=== PATIENT | male | born 1955 | race Caucasian/White ===

== ENCOUNTER 2019-03-08 17:48 | Inpatient (IN) | payer MEDICARE, OTHER ==
[~2019-03-08] VITALS: Ht 160 cm; Wt 59.8 kg
--- NOTE | 2019-03-08 18:18 | NUR ---
ED Nurse Note: PT BROUGHT IN BY AMBULANCE FROM [facility]. PER EMS, PT BROUGHT IN DUE TO INCREASED CONFUSION. AT BEDSIDE, PT IS AOX4 AND ANSWERING ALL QUESTIONS APPROPRIATELY. PT CALM AND COOPERATIVE. ON ASSESSMENT, PURSED-LIP BREATHING AND INTERCOSTAL RETRACTIONS NOTED. PT STATES HE HAS HX OF COPD AND ASTHMA. RR24, 02 SAT 99% ON 3L. PT ABLE TO SPEAK IN FULL SENTENCES BUT STATES HE DOES FEEL SOB. DR COLE NOTIFIED.
[2019-03-08] MEDS ORDERED: ARTIFICIAL TEAR15 ML BOTH EYES (18:20)
[2019-03-08] MEDS ORDERED: ASCORBIC ACID500 MG ORAL (18:20)
[2019-03-08] MEDS ORDERED: ASPIRIN81 MG ORAL (18:20)
[2019-03-08] MEDS ORDERED: ACETAMINOPHEN325 M1 ORAL (18:20)
[2019-03-08] MEDS ORDERED: VITAMIN D1000 UNI1 ORAL (18:20)
[2019-03-08] MEDS ORDERED: FOSAMAX70 MG ORAL (18:20)
[2019-03-08] MEDS ORDERED: MEPRON750 MG/51 ORAL (18:20)
[2019-03-08] MEDS ORDERED: ATIVAN1 MG ORAL (18:20)
[2019-03-08] MEDS ORDERED: ALBUTEROL2.5 MG/3 M INH (18:20)
[2019-03-08 18:21] VITALS: BP 148/110
[2019-03-08] MEDS ORDERED: DIAZEPAM2 MG ORAL (18:24)
[2019-03-08] MEDS ORDERED: COLACE100 MG ORAL (18:24)
[2019-03-08] MEDS ORDERED: DIOVAN80 MG ORAL (18:24)
[2019-03-08] MEDS ORDERED: DILTIAZEM HCL90 MG PO (18:24)
[2019-03-08] MEDS ORDERED: DALIRESP500 MCG PO (18:24)
[2019-03-08] MEDS ORDERED: COMBIVENT RESPIM4 GM IH (18:24)
[2019-03-08] MEDS ORDERED: DULCOLAX10 MG RC (18:24)
[2019-03-08] MEDS ORDERED: Albuterol/Ipratropium 3ml neb HHN ONE (18:30)
--- NOTE | 2019-03-08 18:34 | Emergency Room Report ---
History of Present Illness General Chief Complaint: Altered Mental Status Source: Patient Present Illness HPI Patient is a 63-year-old male presented after increased confusion. He was noted to have prior history of COPD and is currently steroid-dependent. He reports having increased difficulty with respirations. He was noted to be increased confusion. He apparently had been off of his oxygen and is normally oxygen dependent. He reports having increased generalized pain. He has multiple medication allergies. Allergies: Coded Allergies: BUPROPION (Verified Allergy, Unknown, 03/08/19) ETHAMBUTOL (Verified Allergy, Unknown, 03/08/19) GABAPENTIN (Verified Allergy, Unknown, 03/08/19) ISONIAZID (Verified Allergy, Unknown, 03/08/19) METHYLPREDNISOLONE (Verified Allergy, Unknown, 03/08/19) PHENYTOIN (Verified Allergy, Unknown, 03/08/19) PYRAZINAMIDE (Verified Allergy, Unknown, 03/08/19) RIFAMPIN (Verified Allergy, Unknown, 03/08/19) SULFA (SULFONAMIDE ANTIBIOTICS) (Verified Allergy, Unknown, 03/08/19) Patient History Past Medical History: see triage record Reviewed Nursing Documentation: PMH: Agreed; PSxH: Agreed Nursing Documentation-PMH Past Medical History: No History, Except For Hx Asthma: Yes Hx COPD: Yes Review of Systems All Other Systems: negative except mentioned in HPI Physical Exam Vital Signs Date Time Temp Pulse Resp B/P (MAP) Pulse Ox O2 Delivery O2 Flow Rate FiO2 03/08/19 17:52 98.1 130 36 131/89 (103) 98 Nasal Cannula 5.0 Sp02 EP Interpretation: reviewed, normal General Appearance: normal inspection, alert, Chronically Ill Head: atraumatic ENT: normal ENT inspection, hearing grossly normal, normal voice Neck: normal inspection, full range of motion, supple, no bony tend Respiratory: normal inspection, lungs clear, normal breath sounds, no respiratory distress, no retraction, no wheezing Cardiovascular #1: regular rate, rhythm, no edema Gastrointestinal: normal inspection, normal bowel sounds, non tender, soft, no guarding, no hernia Genitourinary: no CVA tenderness Musculoskeletal: normal inspection, back normal, normal range of motion Neurologic: normal inspection, alert, oriented x3, responsive, pipe turner III-XII nml as tested, speech normal Psychiatric: normal inspection, judgement/insight normal, mood/affect normal Skin: no rash Medical Decision Making Diagnostic Impression: Primary Impression: COPD exacerbation Additional Impressions: Chronic pain Respiratory acidosis ER Course Patient presented for shortness of breath. Differential diagnosis included but was not limited to asthma exacerbation, pneumonia, pneumothorax, congestive heart failure, viral respiratory infection, pulmonary embolism, anaphylaxis among others. Patient was placed in the examination room and evaluated by me immediately. Patient was checked periodically to assure stability and response to treatment. He was given breathing treatment as well as steroids. He was initially noted to be tachycardic and was started on IV fluids with some improvement. Patient was reexamined after breathing treatment and had improvement in air movement. His blood gas showed some marked CO2 elevation. Patient reported having significant low back pain. He was given pain medications. Dr. Danish Ospina was contacted for inpatient management due to primary care physician. Laboratory Tests Test 03/08/19 18:25 03/08/19 18:45 03/09/19 01:11 White Blood Count 14.9 K/UL (4.8-10.8) H Red Blood Count 4.40 M/UL (4.70-6.10) L Hemoglobin 12.7 G/DL (14.2-18.0) L Hematocrit 39.4 % (42.0-52.0) L Mean Corpuscular Volume 90 FL (80-99) Mean Corpuscular Hemoglobin 28.9 PG (27.0-31.0) Mean Corpuscular Hemoglobin Concent 32.3 G/DL (32.0-36.0) Red Cell Distribution Width 12.6 % (11.6-14.8) Platelet Count 214 K/UL (150-450) ) Mean Platelet Volume 6.2 FL (6.5-10.1) L Lymphocytes (%) (Auto) 2.3 % (20.0-45.0) L Monocytes (%) (Auto) 3.5 % (1.0-10.0) Eosinophils (%) (Auto) 0.0 % (0.0-3.0) Basophils (%) (Auto) 0.6 % (0.0-2.0) Prothrombin Time 9.1 SEC (9.30-11.50) L Prothrombin Time INR 0.8 (0.9-1.1) L PTT 22 SEC (23-33) L Urine Color Pale yellow Urine Appearance Clear Urine pH 7 (4.5-8.0) Urine Specific [place] 1.010 (1.005-1.035) Urine Protein Negative (NEGATIVE) Urine Glucose (UA) Negative (NEGATIVE) Urine Ketones Negative (NEGATIVE) Urine Blood Negative (NEGATIVE) Urine Nitrite Negative (NEGATIVE) Urine Bilirubin Negative (NEGATIVE) Urine Urobilinogen Normal MG/DL (0.0-1.0) Urine Leukocyte Esterase 1+ (NEGATIVE) H Urine RBC 0-2 /HPF (0 - 0) H Urine WBC 0-2 /HPF (0 - 0) Urine Squamous Epithelial Cells None /LPF (NONE/OCC) Urine Bacteria None /HPF (NONE) Sodium Level 138 MMOL/L (136-145) Potassium Level 3.8 MMOL/L (3.5-5.1) Chloride Level 94 MMOL/L (98-107) L Carbon Dioxide Level 40 MMOL/L (21-32) H Anion Gap 2 mmol/L (5-15) L Blood Urea Nitrogen 12 mg/dL (7-18) Creatinine 0.7 MG/DL (0.55-1.30) Estimate Glomerular Filtration Rate > 60 mL/min (>60) Glucose Level 144 MG/DL (74-106) H Lactic Acid Level 1.10 mmol/L (0.4-2.0) Calcium Level 9.1 MG/DL (8.5-10.1) Phosphorus Level 3.4 MG/DL (2.5-4.9) Magnesium Level 2.3 MG/DL (1.8-2.4) Total Bilirubin 0.3 MG/DL (0.2-1.0) Aspartate Amino Transferase (AST) 15 U/L (15-37) Alanine Aminotransferase (ALT) 21 U/L (12-78) Alkaline Phosphatase 82 U/L (46-116) Total Creatine Kinase 87 U/L (26-308) Creatine Kinase MB 9.0 NG/ML (0.0-3.6) H Creatine Kinase MB Relative Index 10.3 Troponin I 0.003 ng/mL (0.000-0.056) Pro-B-Type Natriuretic Peptide 404 pg/mL (0-125) H Total Protein 6.8 G/DL (6.4-8.2) Albumin 3.1 G/DL (3.4-5.0) L Globulin 3.7 g/dL Albumin/Globulin Ratio 0.8 (1.0-2.7) L Arterial Blood pH 7.403 (7.350-7.450) Arterial Blood Partial Pressure CO2 72.4 mmHg (35.0-45.0) *H Arterial Blood Partial Pressure O2 106.3 mmHg (75.0-100.0) H Arterial Blood HCO3 44.1 mmol/L (22.0-26.0) *H Arterial Blood Oxygen Saturation 97.9 % (95-100) Arterial Blood Base Excess 15.9 (-2-2) *H Janes Test Positive Differential Total Cells Counted Neutrophils % (Manual) Lymphocytes % (Manual) Monocytes % (Manual) Eosinophils % (Manual) Basophils % (Manual) Band Neutrophils Platelet Estimate Platelet Morphology Red Blood Cell Morphology Microbiology Date/Time Source Procedure Growth Status Last Vital Signs Date Time Temp Pulse Resp B/P (MAP) Pulse Ox O2 Delivery O2 Flow Rate FiO2 03/08/19 18:21 118 24 Nasal Cannula 3.0 03/08/19 18:21 98.2 148/110 99 Status: improved Disposition: ADMITTED INPATIENT Condition: Serious Dion Gupta MD Mar 08, 2019 18:34
--- NOTE | 2019-03-08 18:37 | NUR ---
ED Nurse Note: RT AT BEDSIDE FOR BREATHING TX AND ABG.
[2019-03-08] MEDS ORDERED: FERROUS SULFAT325 MG ORAL (18:46)
[2019-03-08] MEDS ORDERED: KETOROLAC TROME10 MG PO (18:46)
[2019-03-08] MEDS ORDERED: PROSCAR5 MG ORAL (18:46)
[2019-03-08] MEDS ORDERED: FISH OIL 1,0001 EAC1 ORAL (18:46)
[2019-03-08] MEDS ORDERED: FOLIC ACID1 MG ORAL (18:46)
[2019-03-08] MEDS ORDERED: FLUTICASONE PRO16 G1 NASAL (18:46)
[2019-03-08] MEDS ORDERED: ENEMA READY-TO133 ML RC (18:46)
[2019-03-08] MEDS ORDERED: MILK OF MA400 MG/51 ORAL (18:48)
[2019-03-08] MEDS ORDERED: LORATADINE10 M1 PO (18:48)
[2019-03-08] MEDS ORDERED: NORCO 5-325 TA1 EACH ORAL (18:48)
[2019-03-08] MEDS ORDERED: MIRALAX17 G2 ORAL (18:48)
[2019-03-08] MEDS ORDERED: MULTIVITAMINS1 EAC8 ORAL (18:48)
[2019-03-08] MEDS ORDERED: MONTELUKAST SOD10 MG ORAL (18:48)
[2019-03-08] MEDS ORDERED: PREDNISONE20 MG ORAL (18:51)
[2019-03-08] MEDS ORDERED: OXYCODONE HCL10 MG ORAL (18:51)
[2019-03-08] MEDS ORDERED: ROBITUSSIN COU237 M2 PO (18:51)
[2019-03-08] MEDS ORDERED: PANTOPRAZOLE SO40 MG ORAL (18:51)
[2019-03-08] MEDS ORDERED: CARISOPRODOL350 MG ORAL (18:51)
[2019-03-08] MEDS ORDERED: PATADAY2.5 ML BOTH EYES (18:51)
--- NOTE | 2019-03-08 19:00 | NUR ---
ED Nurse Note: XRAY AT BEDSIDE.
[2019-03-08 19:08] LABS: HEMATOCRIT 39.4 % (42.0-52.0); HEMOGLOBIN 12.7 G/DL (14.2-18.0); MEAN CORPUSCULAR VOLUME 90 FL (80-99); PLATELET COUNT 214 K/UL (150-450); RED CELL DISTRIBUTION WIDTH 12.6 % (11.6-14.8); WHITE BLOOD COUNT 14.9 K/UL (4.8-10.8)
[2019-03-08 19:10] LABS: LYMPHOCYTES % (AUTO) 2.3 % (20.0-45.0); NEUTROPHILS % (AUTO) 93.6 % (45.0-75.0)
[2019-03-08 19:11] LABS: BASOPHILS % (AUTO) 0.6 % (0.0-2.0); MONOCYTES % (AUTO) 3.5 % (1.0-10.0)
[2019-03-08 19:13] LABS: APPEARANCE,URINE CLEAR; BILIRUBIN, URINE NEGATIVE (NEGATIVE); COLOR,URINE PALE YELLOW; GLUCOSE, URINE (UA) NEGATIVE (NEGATIVE); INR 0.8 (0.9-1.1); KETONES,URINE NEGATIVE (NEGATIVE); LEUKOCYTE ESTERASE ,URINE 1+ (NEGATIVE); NITRITE,URINE NEGATIVE (NEGATIVE); PH,URINE 7 (4.5-8.0); PROTEIN,URINE NEGATIVE (NEGATIVE); UROBILINOGEN,URINE NORMAL MG/DL (0.0-1.0)
[2019-03-08] MEDS ORDERED: Morphine Sulfate 2mg/ml Inj(IV/IM USE ONLY) IVP ONE (19:15)
--- NOTE | 2019-03-08 19:18 | NUR ---
HAND-OFF: REPORT GIVEN TO LUKASZ ALBERTO.
[2019-03-08 19:30] LABS: ALANINE AMINOTRANSFERASE 21 U/L (12-78); ALBUMIN 3.1 G/DL (3.4-5.0); ALBUMIN/GLOBULIN RATIO 0.8 (1.0-2.7); ALKALINE PHOSPHATASE 82 U/L (46-116); ANION GAP 2 mmol/L (5-15); ASPARTATE AMINO TRANSFERASE 15 U/L (15-37); BILIRUBIN,TOTAL 0.3 MG/DL (0.2-1.0); BLOOD UREA NITROGEN 12 mg/dL (7-18); CALCIUM 9.1 MG/DL (8.5-10.1); CARBON DIOXIDE 40 MMOL/L (21-32); CHLORIDE 94 MMOL/L (98-107); CREATINE KINASE 87 U/L (26-308); CREATININE 0.7 MG/DL (0.55-1.30); PHOSPHORUS 3.4 MG/DL (2.5-4.9); POTASSIUM 3.8 MMOL/L (3.5-5.1); SODIUM 138 MMOL/L (136-145)
--- NOTE | 2019-03-08 19:30 | NUR ---
RESPIRATORY NOTE: ABG was drawn for this pt around 1845 (see lab for results). Called to place pt on BiPAP d/t high pCO2. Pt refused twice to be on BiPAP. Pt currently on 2L NC. Alonso MD aware of refusal as well as bedside RN.
--- NOTE | 2019-03-08 19:35 | NUR ---
ED Nurse Note: RECIEVED PT ON NICOLA AWAKE, ALERT AND ORIENTED X 4, NURSE AT BEDSIDE COMPLETING INSERTION OF IV LINE IN RIGHT AC, PT ON CARDIAC MONITORING, PT IS YELLING ANS ASKING FOR PAIN MEDS, PT HERE FROM SNF FOR COPD EXACERBATION, WILL RESUME CARE ORDERED AND PREPARE FOR HOSPITAL ADMISSION.
[2019-03-08 20:00] VITALS: BP 136/97
--- NOTE | 2019-03-08 20:45 | NUR ---
ED Nurse Note: Pt being prepared for admit, has room for admission, pt in bed sleeping, pain meds given effective, pt states no pain at this time, pt bed linen changed and swabs collected, tp has mild redness on bilat buttocks, no open areas, also noted with severe echymosis on BUE, iv site patent, report called to floor nurse LUKASZ Dangelo, pt being taken to floor unit via rjordan with RN- er-tech and acls protocols.
[2019-03-08] MEDS ORDERED: Nitroglycerin Subl 0.4mg tab SL PRN (21:00)
[2019-03-08] MEDS ORDERED: Promethazine/Codeine 5ml UD ORAL PRN (21:00)
--- NOTE | 2019-03-08 21:15 | NUR ---
NURSE NOTES: Received patient from ER. Patient is lethargic, oriented x3 to self, place and day, but denies knowledge of why he is here. Respiratory rate in the mid to high 20s, on 2L NC, see vitals signs. Bilateral rhonchi. Patient is calm and cooperative. Able to open eyes spontaneously, pupils equal and reactive. Able to answer questions but closes eyes right away and goes back to sleep. Abdomen is firm, round, bowel sounds active in all quadrants, patient states his last bowel movement was a couple days ago. Peripheral pulses present on bilateral upper extremities. Patient has ecchymosis throughout both arms with one large one in the medial aspect of the right upper arm and left anterior upper arm. No edema on bilateral lower extremities, bilateral heels with callouses but blanchable. Skin intact, redness on sacrum but intact. 22 gauge iv on left hand, intact, patent, no infiltration. Left ac 20 gauge intact, no signs of infiltration. Elevated HOB to 45 degrees for comfort and breathing. Bed in low position, locked, bed alarm on, call light within reach. Instructed patient to use call light if he needs assistance.
[2019-03-08 21:30] VITALS: BP 138/88
[2019-03-08] MEDS: Theophylline ER 100mg ORAL SCH (21:44)
[2019-03-08] MEDS: Heparin 5000 units/ml inj SUBQ SCH (21:49)
--- NOTE | 2019-03-08 21:50 | NUR ---
NURSE NOTES: Medication given, patient was able to swallow pills whole with thin liquids without any problems.
[2019-03-08] MEDS ORDERED: Piperacillin/Tazobactam 2.25 GM in D5W 55 ML IV SCH (22:00)
[2019-03-08] MEDS: Zosyn 3.375gm q8h **Extended infusion IVPB SCH ×2 (22:23)
[2019-03-08] MEDS: dilTIAZem HCl 90mg tab ORAL SCH (23:25)
--- NOTE | 2019-03-08 23:32 | NUR ---
NURSE NOTES: Patient is incontinent of bladder, applied condom catheter. Patient still lethargic, but able to answer questions when woken up.
[2019-03-09] VITALS (8 sets, daily range): BP systolic 115–145; BP diastolic 68–100
--- NOTE | 2019-03-09 00:14 | NUR ---
NURSE NOTES: Patient is becoming more difficult to arouse. Opens eyes with tactile stimulation. Notified Dr. Treviño via telephone, left message regarding change in LOC, abnormal ABG. No response. Respiratory therapy and charge nurse notified.
--- NOTE | 2019-03-09 00:30 | NUR ---
NURSE NOTES: Patient difficult to arouse. Placed patient on bipap, 20/5, 30%.
--- NOTE | 2019-03-09 00:31 | NUR ---
RESPIRATORY NOTE: Due to previous ABG with Pco2 of 72, pt was lethargic and placed on Bipap settings 20/5, PS 15, Backup rate 14, 30% FiO2. Awaiting MD orders. Will continue to monitor.
--- NOTE | 2019-03-09 00:33 | NUR ---
NURSE NOTES: Notified Dr. Ospina regarding patient's change in LOC and abnormal ABG. No response.
--- NOTE | 2019-03-09 01:15 | NUR ---
NURSE NOTES: Patient awake, screaming and asking to have bipap taken off. Not redirectable. Patient kept pulling mask off with his hands. Applied bilateral soft wrist restraints.
[2019-03-09] MEDS: Albuterol/Ipratropium 3ml neb HHN PRN ×4 (01:31→20:44)
--- NOTE | 2019-03-09 02:00 | NUR ---
NURSE NOTES: Received response from Dr. Ospina regarding patient's agitation, CO2 level, and request for restraints. Dr. Ospina responded "yes, please call Dr. Treviño and Elian." Dr. Treviño was already called. No response from Dr. Treviño. Patient appears more alert and oriented. Patient is aware that he is at [facility], recalls the year and day of the week, able to recall his medication allergies "TB meds and sulfa antibiotics." When asked if he understands why he is here, patient states that they were worried [facility] the [facility]. Explained to patient that if he doesn't have the bipap on, his CO2 will go up and he will fall asleep again and we will have to intubate him. Patient verbalized understanding and states "I know if I don't have the mask I might not wake up but I rather like a human being than have that on." When explained that if he fall asleep, then we might have to put a tube down his throat, patient verbalized understanding and stated that he does not want to be intubated. Asked if patient wants CPR, patient stated "no." Restraints off, bipap off. Charge nurse notified.
--- NOTE | 2019-03-09 02:10 | NUR ---
Call from CORNELIO Crews received informing that no return call from Dr. Treviño yet after 3 attempts by LUKASZ Dangelo. Notified Dr. Treviño via his cell phone/ No answer. Left message re : pt's clinical status and admission orders.
--- NOTE | 2019-03-09 02:22 | NUR ---
Still no return call from Dr. Treviño @ this time. Called him via his home phone.Responded/ notified him about pt's ABG'S & clinical status & requested also for admission orders. Said will call 2E Rn for orders.
--- NOTE | 2019-03-09 02:24 | NUR ---
NURSE NOTES: Notified Dr. Treviño again. Informed him that patient does not want to be intubated and wants to be a DNR.
[2019-03-09] MEDS: Morphine Sulfate 2mg/ml Inj(IV/IM USE ONLY) IVP PRN ×2 (04:42→14:31)
[2019-03-09] MEDS: Zosyn 3.375gm q8h **Extended infusion IVPB SCH ×6 (05:16→22:42)
[2019-03-09] MEDS: dilTIAZem HCl 90mg tab ORAL SCH ×4 (05:16→23:15)
--- NOTE | 2019-03-09 05:45 | NUR ---
NURSE NOTES: Notified Dr. Treviño again and left message that patient's heart rate goes up to 140s unsustained. 0600 dose of cardizem 90mg po already given.
[2019-03-09] MEDS: LORazepam Inj 2mg/ml 1ml IV PRN ×2 (06:55→13:33)
--- NOTE | 2019-03-09 07:30 | NUR ---
NURSE NOTES: Received report from Nicanor Bueno RN. Patient awake in bed, alert and oriented x 4, anxious. Receiving O2 via nasal cannula @ 2L/min, saturating at 98%. Left hand 22g IV site infusing Zosyn @ 27.5 cc/hr, no s/s of infiltration noted. Left AC 20g saline lock patent and asymptomatic. Bed locked in lowest position with side rails up x 3. All needs attended to. Call light within reach. Will continue to monitor.
--- NOTE | 2019-03-09 07:33 | NUR ---
NURSE NOTES: Received orders from Dr. Treviño for cardizem 10mg ivp q1hr for HR >110. No other orders.
--- NOTE | 2019-03-09 07:34 | NUR ---
HAND-OFF: Report given to Rocio LAL.
[2019-03-09] MEDS: dilTIAZem HCl 50mg/10ml Inj IVP PRN ×2 (08:28→11:46)
[2019-03-09] MEDS: Montelukast 10mg tablet ORAL SCH (08:29)
[2019-03-09] MEDS: Theophylline ER 100mg ORAL SCH ×2 (08:29→20:19)
[2019-03-09] MEDS: Heparin 5000 units/ml inj SUBQ SCH ×2 (08:30→20:30)
--- NOTE | 2019-03-09 09:26 | NUR ---
RESPIRATORY NOTE: aware of pt's recent ABG results, pt refuses to wear bipap. pt asked for prn, breathing tx. tx given with slightly elevated HR of 115. pt currently on 2L NC with etCO2 of 39-42 mmHg. RN notified. Addendum: 03/09/19 at 0928 by KAI IQBAL RT no visible redness or skin wounds around facial area from short time of wearing bipap last night.
--- NOTE | 2019-03-09 10:52 | Consultation ---
History of Present Illness General Date patient seen: Mar 09, 2019 Chief Complaint: Altered Mental Status Present Illness HPI 63-year-old male with hx of COPD and endstage emphysema, Afib, DM, anxiety, bipolar, [facility] resident presented to ER with CC of increased confusion. He reports having increased difficulty with respirations. He apparently had been off of his oxygen and is normally oxygen dependent. He reports having increased generalized pain. He is admitted to telemetry for further management. Allergies: Coded Allergies: BUPROPION (Verified Allergy, Unknown, 03/08/19) ETHAMBUTOL (Verified Allergy, Unknown, 03/08/19) GABAPENTIN (Verified Allergy, Unknown, 03/08/19) ISONIAZID (Verified Allergy, Unknown, 03/08/19) METHYLPREDNISOLONE (Verified Allergy, Unknown, 03/08/19) PHENYTOIN (Verified Allergy, Unknown, 03/08/19) PYRAZINAMIDE (Verified Allergy, Unknown, 03/08/19) RIFAMPIN (Verified Allergy, Unknown, 03/08/19) SULFA (SULFONAMIDE ANTIBIOTICS) (Verified Allergy, Unknown, 03/08/19) Medication History Scheduled Alendronate Sodium* (Fosamax*), 70 MG ORAL ONCE A WEEK, (Reported) Ascorbic Acid* (Ascorbic Acid*), 500 MG ORAL DAILY, (Reported) Aspirin* (Aspirin*), 81 MG ORAL DAILY, (Reported) Atovaquone* (Mepron*), 750 MG ORAL DAILY, (Reported) Cholecalciferol (Vitamin D3)* (Vitamin D*), 2,000 UNITS ORAL DAILY, (Reported) Dextran 70/Hypromellose (Artificial Tears Eye Drops*), 1 DROP BOTH EYES BID, ( Reported) Diltiazem Hcl (Diltiazem Hcl), 90 MG PO Q6HR, (Reported) Docusate Sodium* (Colace*), 100 MG ORAL THREE TIMES A DAY, (Reported) Ferrous Sulfate* (Ferrous Sulfate*), 325 MG ORAL TWICE A DAY, (Reported) Finasteride* (Proscar*), 5 MG ORAL QHS, (Reported) Fluticasone Propionate* (Fluticasone Propionate*), 2 SPRAY NASAL DAILY, ( Reported) Folic Acid* (Folic Acid*), 1 MG ORAL DAILY, (Reported) Guaifenesin/Dextromethorphan (Robitussin Cough-Chest Dm Liq), 10 ML PO Q6HR, ( Reported) Ipratropium/Albuterol Sulfate (Combivent Respimat Inhal Harrison), 4 GM IH Q6HR, ( Reported) Ketorolac Tromethamine (Ketorolac Tromethamine), 10 MG PO Q4HR, (Reported) Loratadine (Loratadine), 10 MG PO DAILY, (Reported) Lorazepam* (Ativan*), 1 MG ORAL THREE TIMES A DAY, (Reported) Magnesium Hydroxide* (Milk Of Magnesia*), 30 ML ORAL DAILY, (Reported) Montelukast Sodium* (Montelukast Sodium*), 10 MG ORAL DAILY, (Reported) Multivitamin With Minerals (Multivitamins With Minerals*), 1 TAB ORAL DAILY, ( Reported) Olopatadine Hcl (Pataday), 2.5 ML OP DAILY, (Reported) [place]-3 Fatty Acids/Fish Oil* (Fish Oil 1,000 Mg Softgel*), 1 CAP ORAL DAILY, ( Reported) Pantoprazole* (Pantoprazole*), 40 MG ORAL DAILY, (Reported) Prednisone* (Prednisone*), 20 MG ORAL BID, (Reported) Roflumilast (Daliresp), 500 MCG PO DAILY, (Reported) Valsartan (Diovan), 80 MG ORAL DAILY, (Reported) Scheduled PRN Acetaminophen* (Acetaminophen 325MG Tablet*), 650 MG ORAL Q6H PRN for Prn Headache/Temp > 101, (Reported) Albuterol Sulfate* (Albuterol Sulfate Hhn*), 3 ML INH Q4H PRN for Shortness of Breath, (Reported) Carisoprodol* (Carisoprodol*), 350 MG ORAL Q8HR PRN for For Pain, (Reported) Diazepam* (Diazepam*), 2 MG ORAL Q8H PRN for ANXIETY, (Reported) Hydrocodone Bit/Acetaminophen 5-325* ([place] 5-325*), 1 TAB ORAL Q6H PRN for For Pain, (Reported) Na Phos,M-B/Na Phos,Di-Ba (Enema Nlzkr-My-Apd), 133 ML RC DAILY PRN for For Cough, (Reported) Oxycodone Hcl* (Oxycodone Hcl*), 10 MG ORAL Q8HR PRN for For Pain, (Reported) Polyethylene Glycol 3350* (Miralax*), 17 GM ORAL DAILY PRN for Constipation, ( Reported) Miscellaneous Medications Bisacodyl (Dulcolax), 10 MG RC, (Reported) Patient History Healthcare decision maker Ashlie Hawley Resuscitation status Full Code Advanced Directive on File Past Medical/Surgical History Past Medical/Surgical History: (1) Diabetes mellitus (2) GERD (gastroesophageal reflux disease) (3) Generalized anxiety disorder (4) Bipolar 1 disorder (5) End stage COPD Review of Systems All Other Systems: negative except mentioned in HPI Physical Exam General Appearance: WD/WN Lines, tubes and drains: peripheral HEENT: normocephalic, atraumatic Neck: non-tender, normal alignment Respiratory/Chest: chest wall non-tender, lungs clear Breasts: no masses Cardiovascular/Chest: normal peripheral pulses Abdomen: normal bowel sounds, non tender Genitourinary/Rectal: normal genital exam, normal rectal exam Extremities: normal range of motion, non-tender Skin Exam: normal pigmentation Neurologic: feed weigher II-XII grossly normal Last 24 Hour Vital Signs Date Time Temp Pulse Resp B/P (MAP) Pulse Ox O2 Delivery O2 Flow Rate FiO2 03/09/19 09:24 111 22 100 Nasal Cannula 2.0 28 115 22 97 03/09/19 08:28 118 126/91 03/09/19 08:06 135 24 97 Nasal Cannula 2.0 28 03/09/19 08:00 2.0 03/09/19 08:00 96.7 111 20 126/91 (103) 98 03/09/19 07:46 93 03/09/19 06:10 75 18 100 Nasal Cannula 2.0 28 72 18 98 03/09/19 05:16 118 137/93 03/09/19 04:00 2.0 03/09/19 04:00 118 03/09/19 04:00 98.6 106 18 137/93 (108) 99 03/09/19 01:31 80 19 100 Bi-Pap 30 77 18 98 03/09/19 01:15 82 23 98 Facial 30 03/09/19 00:38 30 03/09/19 00:31 77 20 97 Facial 30 03/09/19 00:00 98.0 92 18 135/95 (108) 98 03/09/19 00:00 91 03/08/19 23:25 95 138/88 03/08/19 22:00 Nasal Cannula 2.0 03/08/19 21:30 97.7 95 24 138/88 (105) 97 03/08/19 21:30 98 03/08/19 20:50 98.4 109 19 136/97 100 Nasal Cannula 2.0 28 03/08/19 20:00 98.4 109 19 136/97 100 Nasal Cannula 2.0 28 03/08/19 18:44 125 19 100 Nasal Cannula 2.0 28 03/08/19 18:34 124 18 98 Nasal Cannula 2.0 28 03/08/19 18:34 124 18 98 03/08/19 18:21 118 24 Nasal Cannula 3.0 03/08/19 18:21 98.2 118 24 148/110 99 Nasal Cannula 3.0 03/08/19 17:52 98.1 130 36 131/89 (103) 98 Nasal Cannula 5.0 Intake and Output 03/08/19 03/09/19 19:00 07:00 # Voids 1 Laboratory Tests Test 03/08/19 18:25 03/08/19 18:45 03/09/19 01:11 White Blood Count 14.9 K/UL (4.8-10.8) H Red Blood Count 4.40 M/UL (4.70-6.10) L Hemoglobin 12.7 G/DL (14.2-18.0) L Hematocrit 39.4 % (42.0-52.0) L Mean Corpuscular Volume 90 FL (80-99) Mean Corpuscular Hemoglobin 28.9 PG (27.0-31.0) Mean Corpuscular Hemoglobin Concent 32.3 G/DL (32.0-36.0) Red Cell Distribution Width 12.6 % (11.6-14.8) Platelet Count 214 K/UL (150-450) Mean Platelet Volume 6.2 FL (6.5-10.1) L Neutrophils (%) (Auto) 93.6 % (45.0-75.0) H Lymphocytes (%) (Auto) 2.3 % (20.0-45.0) L Monocytes (%) (Auto) 3.5 % (1.0-10.0) Eosinophils (%) (Auto) 0.0 % (0.0-3.0) Basophils (%) (Auto) 0.6 % (0.0-2.0) Prothrombin Time 9.1 SEC (9.30-11.50) L Prothromb Time International Ratio 0.8 (0.9-1.1) L Activated Partial Thromboplast Time 22 SEC (23-33) L Urine Color Pale yellow Urine Appearance Clear Urine pH 7 (4.5-8.0) Urine Specific [place] 1.010 (1.005-1.035) Urine Protein Negative (NEGATIVE) Urine Glucose (UA) Negative (NEGATIVE) Urine Ketones Negative (NEGATIVE) Urine Blood Negative (NEGATIVE) Urine Nitrite Negative (NEGATIVE) Urine Bilirubin Negative (NEGATIVE) Urine Urobilinogen Normal MG/DL (0.0-1.0) Urine Leukocyte Esterase 1+ (NEGATIVE) H Urine RBC 0-2 /HPF (0 - 0) H Urine WBC 0-2 /HPF (0 - 0) Urine Squamous Epithelial Cells None /LPF (NONE/OCC) Urine Bacteria None /HPF (NONE) Sodium Level 138 MMOL/L (136-145) Potassium Level 3.8 MMOL/L (3.5-5.1) Chloride Level 94 MMOL/L (98-107) L Carbon Dioxide Level 40 MMOL/L (21-32) H Anion Gap 2 mmol/L (5-15) L Blood Urea Nitrogen 12 mg/dL (7-18) Creatinine 0.7 MG/DL (0.55-1.30) Estimat Glomerular Filtration Rate > 60 mL/min (>60) Glucose Level 144 MG/DL (74-106) H Lactic Acid Level 1.10 mmol/L (0.4-2.0) Calcium Level 9.1 MG/DL (8.5-10.1) Phosphorus Level 3.4 MG/DL (2.5-4.9) Magnesium Level 2.3 MG/DL (1.8-2.4) Total Bilirubin 0.3 MG/DL (0.2-1.0) Aspartate Amino Transf (AST/SGOT) 15 U/L (15-37) Alanine Aminotransferase (ALT/SGPT) 21 U/L (12-78) Alkaline Phosphatase 82 U/L (46-116) Total Creatine Kinase 87 U/L (26-308) Creatine Kinase MB 9.0 NG/ML (0.0-3.6) H Creatine Kinase MB Relative Index 10.3 Troponin I 0.003 ng/mL (0.000-0.056) Pro-B-Type Natriuretic Peptide 404 pg/mL (0-125) H Total Protein 6.8 G/DL (6.4-8.2) Albumin 3.1 G/DL (3.4-5.0) L Globulin 3.7 g/dL Albumin/Globulin Ratio 0.8 (1.0-2.7) L Arterial Blood pH 7.403 (7.350-7.450) 7.413 (7.350-7.450) Arterial Blood Partial Pressure CO2 72.4 mmHg (35.0-45.0) *H 70.5 mmHg (35.0-45.0) *H Arterial Blood Partial Pressure O2 106.3 mmHg (75.0-100.0) H 101.1 mmHg (75.0-100.0) H Arterial Blood HCO3 44.1 mmol/L (22.0-26.0) *H 44.0 mmol/L (22.0-26.0) *H Arterial Blood Oxygen Saturation 97.9 % (95-100) 97.6 % (95-100) Arterial Blood Base Excess 15.9 (-2-2) *H 16.1 (-2-2) *H Janes Test Positive Positive Microbiology Date/Time Source Procedure Growth Status 03/08/19 21:00 Rectum Received Height (Feet): 3 Height (Inches): 5.00 Weight (Pounds): 138 Medications Current Medications Medications (Trade) Dose Ordered Sig/Kelton Route PRN Reason Start Time Stop Time Status Last Admin Dose Admin Albuterol/ Ipratropium (Albuterol/ Ipratropium) 3 ml Q4H PRN HHN dyspnea 03/08/19 21:00 03/13/19 20:59 03/09/19 09:23 Atovaquone (Mepron Susp) 750 mg DAILY ORAL 03/09/19 09:00 04/08/19 08:59 UNV Dextrose (Dextrose 50%) 25 ml Q30M PRN IV Hypoglycemia 03/08/19 21:00 04/07/19 20:59 Dextrose (Dextrose 50%) 50 ml Q30M PRN IV Hypoglycemia 03/08/19 21:00 04/07/19 20:59 Diltiazem HCl (Cardizem) 10 mg Q1H PRN IVP HR >110 03/09/19 07:29 04/08/19 07:28 03/09/19 08:28 Diltiazem HCl (Cardizem) 90 mg Q6HR ORAL 03/09/19 00:00 04/08/19 00:00 03/09/19 05:16 Finasteride (Proscar) 5 mg QHS ORAL 03/08/19 21:00 04/07/19 20:59 03/08/19 21:44 Heparin Sodium (Porcine) (Heparin 5000 units/ml) 5,000 units EVERY 12 HOURS SUBQ 03/08/19 21:00 04/07/19 20:59 03/09/19 08:30 Lorazepam (Ativan 2mg/ml 1ml) 0.5 mg Q4H PRN IV For Anxiety 03/08/19 21:00 03/15/19 20:59 03/09/19 06:55 Montelukast Sodium (Singulair) 10 mg DAILY ORAL 03/09/19 09:00 04/08/19 08:59 03/09/19 08:29 Morphine Sulfate (Morphine Sulfate) 2 mg Q4H PRN IVP Severe Pain (Pain Scale 7-10) 03/08/19 21:00 03/15/19 20:59 03/09/19 04:42 Nitroglycerin (Ntg) 0.4 mg Q5MIN X 3 DOSES PRN SL Prn Chest Pain 03/08/19 21:00 04/07/19 20:59 Ondansetron HCl (Zofran) 4 mg Q6H PRN IVP Nausea & Vomiting 03/08/19 21:00 04/07/19 20:59 03/09/19 05:38 Piperacillin Sod/ Tazobactam Sod 3.375 gm/Sodium Chloride 110 ml @ 27.5 mls/hr EVERY 8 HOURS IVPB 03/08/19 22:00 03/13/19 21:59 03/09/19 05:16 Prednisone (predniSONE) 60 mg Q12HR ORAL 03/09/19 21:00 04/08/19 08:59 Promethazine HCl/ Codeine (Phenergan with Codeine) 5 ml Q6H PRN ORAL cough 03/08/19 21:00 04/07/19 20:59 Temazepam (Restoril) 15 mg HSPRN PRN ORAL Insomnia 03/08/19 21:00 03/15/19 20:59 Theophylline (Yobany-Dur) 100 mg EVERY 12 HOURS ORAL 03/08/19 21:00 04/07/19 20:59 03/09/19 08:29 Assessment/Plan Problem List: (1) COPD with acute exacerbation ICD Codes: J44.1 - Chronic obstructive pulmonary disease with (acute) exacerbation SNOMED: 103314577 (2) Bipolar 1 disorder ICD Codes: F31.9 - Bipolar disorder, unspecified SNOMED: 619127573 (3) End stage COPD ICD Codes: J44.9 - Chronic obstructive pulmonary disease, unspecified SNOMED: 599932272 (4) GERD (gastroesophageal reflux disease) ICD Codes: K21.9 - Gastro-esophageal reflux disease without esophagitis SNOMED: 393515414 (5) Diabetes mellitus ICD Codes: E11.9 - Type 2 diabetes mellitus without complications SNOMED: 41188858 (6) Emphysema of lung ICD Codes: J43.9 - Emphysema, unspecified SNOMED: 69126687 Assessment/Plan: respiratory treatment check sputum titrate fio2 to sat of 92% iv abx anxiolytics chest PT sputum induction pt is started on Prednisone 60 bid, instead of solumedrol since he is allergic to it. Chante Treviño MD Mar 09, 2019 10:52
[2019-03-09] MEDS: PARoxetine 20mg tab ORAL SCH (11:03)
--- NOTE | 2019-03-09 11:22 | Diagnostic Imaging Report ---
Indication: Dyspnea Comparison: 09/09/2006 A single view chest radiograph was obtained. Findings: The upper lobes appear mildly hyperlucent. Heart size is normal. Aorta is mildly calcified. No infiltrate identified. IMPRESSION: No acute disease
--- NOTE | 2019-03-09 12:50 | NUR ---
NURSE NOTES: Patient stated wishes for being DNR/DNI instead of full code. Patient is alert and oriented x 4. POLST filled out and signed by patient with sister at bedside. Dr. Treviño and Dr. Ospina notified. Respected patient's wishes and code changed to DNR/DNI.
[2019-03-09] MEDS: Docusate 100mg cap ORAL SCH ×2 (12:53→18:04)
[2019-03-09] MEDS: Lactulose 20gm/30ml UDC ORAL SCH ×2 (12:53→18:04)
--- NOTE | 2019-03-09 13:43 | NUR ---
NURSE NOTES: Patient remains tachycardic despite cardizem 10mg IVP PRN. Dr. Ospina made aware and received consult order for Dr. De Anda. Dr. De Anda notified of patient's condition, awaiting call back.
[2019-03-09] MEDS ORDERED: Metoprolol 5mg/5ml Inj IVP SCH (15:05)
[2019-03-09] MEDS ORDERED: Digoxin 0.5mg/2ml Inj IVP SCH (15:06)
[2019-03-09] MEDS: dilTIAZem HCl CD 180mg cap ORAL SCH (15:18)
--- NOTE | 2019-03-09 15:30 | NUR ---
NURSE NOTES: Received phone call from Dr. De Anda and updated on patient's status. Telephone orders received, read back and verified, noted and carried out. Cardizem CD 180 mg PO, Metoprolol 5 mg IVP, and Digoxin 0.5 mg IVP administered as ordered. Patient's rhythm remains at A Fib but with rate controlled in 90s. Will continue to monitor.
--- NOTE | 2019-03-09 15:42 | NUR ---
CASE MANAGEMENT:REVIEW 63 YR OLD MALE BIBA FROM [facility] CC: AMS. SOB SI: COPD EXACERBATION 98.0 130 36 131/89 98% ON 5L/NC WBC+14.9 CO2+40 PCO2+72 IS: 1L NS BOLUS DUONEB HHN PREDNISONE PO IV MORPHINE CXR BLOOD CX : TO TELEMETRY 03/09/19 IS: BIPAP : TELEMETRY INTERQUAL CRITERIA MET
--- NOTE | 2019-03-09 16:37 | Diagnostic Imaging Report ---
Indication: Abdominal pain Technique: Grayscale and duplex Doppler imaging of the abdomen performed. Comparison: None Findings: The liver is unremarkable. Doppler interrogation of the main portal vein shows patency with hepatopedal, monophasic flow. There is no biliary ductal dilatation identified. Gallbladder is unremarkable. CBD is less than 2 mm in diameter. There demonstrated part of the pancreas, aorta and IVC show no definite abnormalities. Suspected cyst nonobstructive stones in the right kidney demonstrated with echogenic shadowing foci demonstrated. There is no hydronephrosis. IMPRESSION: Suspected nonobstructive stones in the right kidney. Findings may be conformed on noncontrast CT. Negative exam otherwise.
--- NOTE | 2019-03-09 18:11 | Cardiology Report ---
APPROVED REPORT EKG Measurement Heart [id number] Atrial fibrillation with rapid ventricular response Abnormal ECG
--- NOTE | 2019-03-09 19:07 | NUR ---
HAND-OFF: Report given to Nicanor Bueno RN.
--- NOTE | 2019-03-09 19:30 | NUR ---
NURSE NOTES: Patient in bed, on 2L NC, no signs of respiratory distress. Connected to End tidal CO2 monitor, in the 50s. Patient is awake, alert, however speech is slightly delayed. Oriented to self, time, place, situation but had difficulty answering questions right away. Right hand 22 gauge, intact, patent. Bed in low position, locked, bed alarm on, call light within reach. HOB elevated 45 degrees.
[2019-03-09] MEDS ORDERED: TRAZODONE HCL50 MG ORAL (20:25)
[2019-03-09] MEDS ORDERED: SPIRIVA18 MCG INH (20:25)
[2019-03-09] MEDS ORDERED: IPRAT-ALBUT 0.5-3 ML IH (20:25)
[2019-03-09] MEDS ORDERED: CYMBALTA20 MG ORAL (20:25)
[2019-03-09] MEDS ORDERED: ALBUTEROL2.5 MG/0.1 IH (20:25)
[2019-03-09] MEDS ORDERED: VOLTAREN100 G1 TP (20:25)
[2019-03-09] MEDS ORDERED: RESOURCE 2.0237 ML PO (20:25)
[2019-03-09] MEDS ORDERED: FLOMAX0.4 MG ORAL (20:25)
[2019-03-09] MEDS ORDERED: ALBUTEROL2.5 MG/3 M INH (20:25)
--- NOTE | 2019-03-09 20:45 | Consultation ---
DATE OF CONSULTATION: 03/09/2019 CONSULTING PHYSICIAN: Catherine Plummer M.D. REFERRING PHYSICIAN: Danish Ospina D.O. HISTORY OF PRESENT ILLNESS: This is a 63-year-old male patient. This patient came into the hospital. He is very confused and disorganized male patient. He is in his room screaming. He came in with COPD exacerbation, but he is very disorganized and confused on interview. He has got a lot of mood lability. He has got no logical plan for his own self-care. The patient is very confused and disorganized. He has got no logical plan for his own self-care. Basically, this patient came into the hospital because he has COPD, emphysema, and AFib, and he came in with altered mental status, confusion, agitation, and high levels of anxiety. Therefore, a psychiatric consultation was requested. I saw and assessed the patient at bedside today. He is very confused in his room, screaming, very agitated, and irritable. He states he is very anxious. He is n.p.o., but he is requesting water. He states he is very upset because he cannot get anything to drink, but he is verbally abusive and making nonsensical statements. He seems to have poor insight into psychiatric illness and also his medical illness as well. PAST MEDICAL HISTORY: As far as his medical problems, he has a history of COPD, atrial fibrillation, emphysema, diabetes, and hypertension. He also has GERD, end-stage COPD. ALLERGIES: He has allergies to Wellbutrin, Neurontin, isoniazid, prednisone, Dilantin, rifampin, and sulfa drugs. He is very confused, disorganized, and extremely mood labile. PSYCHOTROPIC MEDICATIONS ON ADMISSION: Currently, he takes Paxil and he is also on Ativan 0.5 mg IV q.4 h. p.r.n. anxiety and agitation. PAST PSYCHIATRIC HISTORY: Paranoid schizophrenia with acute exacerbation, multiple psychiatric admissions. FAMILY PSYCHIATRIC HISTORY: Denies. PAIN ASSESSMENT: 010. DEVELOPMENTAL PROBLEMS: Denies. SOCIAL HISTORY: The patient lives in a jail. Financially supported by [employer] and Medicare. STRENGTHS: He is motivated to get better. He is healthy. WEAKNESSES: He is impulsive. Minimal support system. MENTAL STATUS EXAMINATION: This is a 63-year-old male. Appearance is disheveled. Attitude, irritable and agitated. Affect, guarded and restricted. Intellect, poor. Mood, depressed and anxious. Motor activity, psychomotor agitation. Attention span is poor. Orientation x2. Speech is pressured. Thought process, disorganized and illogical. Insight and judgment is poor. DIAGNOSES: PRIMARY: Paranoid schizophrenia with acute exacerbation. MEDICAL: 1. COPD. 2. Diabetes. PSYCHOSOCIAL STRESSORS: Financial. Functional impairment, severe PLAN: My plan for this patient, I am going to treat this patient with a medication regimen of Seroquel at 100 mg three times a day, as the patient states he does want that medication normally to help stabilize his mood. A 20 minutes of cognitive behavioral therapy provided to help him identify his automatic negative thoughts and help him convert those negative thoughts to more positive thoughts to reduce depression, anxiety, and suicidality. A 20 minutes of cognitive behavioral therapy provided. Chart reviewed and discussed with staff. Seen and assessed at bedside. Thank you, Dr. Danish Ospina, for this interesting consultation. Catherine Plummer M.D. DR: LOUIE JOB#: [id number] CC:
--- NOTE | 2019-03-09 20:51 | Cardiology Progress Note ---
Assessment/Plan Assessment/Plan The patient is seen and examined, full consult note is dictated. Objective Last 24 Hour Vital Signs Date Time Temp Pulse Resp B/P (MAP) Pulse Ox O2 Delivery O2 Flow Rate FiO2 03/09/19 20:44 87 20 98 Nasal Cannula 2.0 28 03/09/19 20:44 98 Nasal Cannula 2.0 28 03/09/19 20:44 87 20 98 03/09/19 20:00 98.0 82 18 115/80 (92) 98 03/09/19 18:04 128 135/95 03/09/19 16:00 2.0 03/09/19 16:00 96.9 128 25 135/95 (108) 97 03/09/19 15:21 90 03/09/19 15:18 126 132/92 03/09/19 15:17 126 132/92 03/09/19 15:17 126 03/09/19 15:00 98.6 03/09/19 13:40 98.6 130 23 142/94 (110) 96 126 03/09/19 12:53 109 145/100 03/09/19 12:01 126 03/09/19 12:00 2.0 03/09/19 12:00 98.3 109 23 145/100 (115) 97 109 03/09/19 11:46 128 144/110 03/09/19 09:24 111 22 100 Nasal Cannula 2.0 115 22 97 03/09/19 09:00 Nasal Cannula 2.0 03/09/19 09:00 Nasal Cannula 2.0 03/09/19 08:28 118 126/91 03/09/19 08:06 135 24 97 Nasal Cannula 2.0 28 03/09/19 08:00 2.0 03/09/19 08:00 96.7 111 20 126/91 (103) 98 03/09/19 07:46 93 03/09/19 06:10 75 18 100 Nasal Cannula 2.0 28 72 18 98 03/09/19 05:16 118 137/93 03/09/19 04:00 2.0 03/09/19 04:00 118 03/09/19 04:00 98.6 106 18 137/93 (108) 99 03/09/19 01:31 80 19 100 Bi-Pap 30 77 18 98 03/09/19 01:15 82 23 98 Facial 30 03/09/19 00:38 30 03/09/19 00:31 77 20 97 Facial 30 03/09/19 00:00 98.0 92 18 135/95 (108) 98 03/09/19 00:00 91 03/08/19 23:25 95 138/88 03/08/19 22:00 Nasal Cannula 2.0 03/08/19 21:30 97.7 95 24 138/88 (105) 97 03/08/19 21:30 98 Intake and Output 03/08/19 03/09/19 18:59 06:59 # Voids 1 Laboratory Tests Test 03/09/19 01:11 Arterial Blood pH 7.413 (7.350-7.450) Arterial Blood Partial Pressure CO2 70.5 mmHg (35.0-45.0) *H Arterial Blood Partial Pressure O2 101.1 mmHg (75.0-100.0) H Arterial Blood HCO3 44.0 mmol/L (22.0-26.0) *H Arterial Blood Oxygen Saturation 97.6 % (95-100) Arterial Blood Base Excess 16.1 (-2-2) *H Janes Test Positive Microbiology Date/Time Source Procedure Growth Status 03/08/19 21:00 Rectum Received Lars De Anda MD Mar 09, 2019 20:51
--- NOTE | 2019-03-09 21:45 | History and Physical Report ---
DATE OF ADMISSION: 03/08/2019 DATE AND TIME SEEN: 03/09/2019 at 1 p.m. CONSULTANTS: 1. Chante Treviño M.D. 2. Catherine Plummer M.D. CHIEF COMPLAINT: Altered mental status, respiratory acidosis, psych history, exacerbated COPD. BRIEF HISTORY: This is a 63-year-old male from [facility], presented with above-mentioned diagnoses. Currently, slightly anxious in bed, slight short of breath. O2 NC in place. REVIEW OF SYSTEMS: No chest pain. Slight short of breath. No nausea, vomiting, or diarrhea. PAST MEDICAL HISTORY: Includes emphysema, COPD, bipolar, GERD, diabetes, and hypertension. PAST SURGICAL HISTORY: None. ALLERGIES: Bupropion, ethambutol, gabapentin, isoniazid, methylprednisolone, phenytoin, rifampin, and sulfa. MEDICATIONS: Include prednisone, lactulose, fluoxetine, montelukast, diltiazem, Zosyn, lorazepam, morphine, Zofran, temazepam, and theophylline. SOCIAL HISTORY: No smoking. No alcohol. No intravenous drug abuse. FAMILY HISTORY: Noncontributory. PHYSICAL EXAMINATION: GENERAL: Slightly anxious in bed, oriented x2, in no acute distress. VITAL SIGNS: Temperature 98, pulse 109, respirations 23, and blood pressure 145/100. CARDIOVASCULAR: No murmur. LUNGS: Poor air exchange. ABDOMEN: Bowel sounds distant. EXTREMITIES: No cyanosis or edema. NEUROLOGIC: The patient moves all extremities, slightly weak. LABORATORY AND DIAGNOSTIC DATA: Labs at this time show white count 14.9, H and H of 12/39, and platelets 214,000. Chloride 94, CO2 40. Glucose 144. Troponin 0.003. BNP is 404. Albumin 3.1. INR is 0.8. PTT is 22. Urinalysis show 1+ leukocyte esterase. ASSESSMENT: 1. Altered mental status. 2. Respiratory acidosis. 3. Urinary tract infection. 4. Leukocytosis. 5. Malnutrition. 6. Hypertension. 7. Diabetes. 8. Bipolar. 9. Gastroesophageal reflux disease. 10. Emphysema. 11. Psych history. 12. Chronic obstructive pulmonary exacerbation. PLAN: 1. O2 and pulmonary treatment. 2. Antibiotics per Infectious Disease. 3. Blood pressure and blood sugar control. 4. Dietary followup. 5. Taper off steroids. 6. Psychiatric treatment. 7. We will continue to follow this patient medically. 8. CBC and BMP in the morning. 9. PT and dietary evaluation. Danish Ospina D.O. DR: MARIE JOB#: [id number] CC:
--- NOTE | 2019-03-09 22:00 | NUR ---
NURSE NOTES: Patient pulled out his IV. Applied pressure and gauze at the IV site. Bleeding stopped. Restarted another IV, 22 gauge, right forearm.
--- NOTE | 2019-03-09 22:45 | Consultation ---
DATE OF CONSULTATION: 03/09/2019 CARDIOLOGY CONSULTATION CONSULTING PHYSICIAN: Lars De Anda M.D. REFERRING PHYSICIAN: Danish Ospina D.O. REASON FOR CONSULTATION: Management of dyspnea from Cardiology standpoint. HISTORY OF PRESENT ILLNESS: The patient is a very unfortunate 63-year-old gentleman with chronic respiratory failure, steroid dependent and oxygen dependent who presents to the hospital with increased difficulty with respiration and altered level of consciousness. Apparently, the patient had been off his oxygen and appears to be more confused. He also complains of generalized pain. He declares himself to be DNR/DNI and does not want to have BiPAP mask placed. According to the nurses after placement of BiPAP mask for severe hypoxemia, the patient's mental status improved. Currently he is very agitated in severe respiratory distress and appears to be altered. PAST MEDICAL HISTORY: 1. Chronic respiratory failure oxygen dependent, steroid dependent. 2. History of COPD. ALLERGIES: Bupropion, ethambutol, gabapentin, isoniazid, methylprednisolone, phenytoin, pyrazinamide, rifampin, and sulfa. PAST SURGICAL HISTORY: None. REVIEW OF SYSTEMS: HEENT: Denies any headache, diplopia, or blurred vision. CONSTITUTIONAL: Generalized weakness. Denies any fever, chills, night sweats. CARDIOVASCULAR: Denies any chest pain. Positive for shortness of breath. Denies any PND, orthopnea, or leg swelling. PULMONARY: Shortness of breath. No hemoptysis. GASTROINTESTINAL: Denies any nausea, vomiting, diarrhea, constipation, abdominal pain, or GI bleed. GENITOURINARY: Denies any hematuria, dysuria, incontinence. NEUROLOGY: He is confused. Denies any signs of lateralization. No prior history of stroke. No altered speech. MEDICATIONS: List of medication includes acetaminophen 650 hours p.r.n. pain and temperature above 101, albuterol 3 mL q. 6h p.r.n. shortness of breath, Fosamax 70 mg once weekly, ascorbic acid 500 mg p.o. daily, aspirin 81 mg p.o. daily, Mepron 10 mL p.o. daily, Dulcolax 10 mg rectal p.r.n. constipation, Soma 350 mg q. 8 h p.r.n. pain, vitamin D 2000 units daily, artificial tears in both eyes b.i.d., diazepam 10 mg q. 8 h p.r.n. anxiety, Voltaren 100 mg p.o. q.i.d., diltiazem 90 mg p.o. q.6 hours, Colace 100 mg three times a day, Cymbalta 20 mg p.o. daily, ferrous sulfate 325 mg twice daily, Proscar 5 mg p.o. at bedtime, fluticasone two spray nasal spray, folic acid 1 mg p.o. daily, Robitussin Cough-Chest DM liquid 10 mL p.o. q. 6 h, [place] 5/325 one tablet q.6 hours p.r.n. pain, ipra albuterol 0.5 and 2.5 in 3 mL two puffs IH q.i.d. p.r.n. COPD, Ketoralac 30 mg q.4 hours p.r.n. pain, loratadine 10 mg p.o. daily, Ativan 1 mg p.o. three times a day, magnesium hydroxide 30 mL p.o. daily p.r.n. constipation, montelukast 10 mg daily p.r.n. cough, multivitamin one tablet daily, Enema 133 mL rectal daily p.r.n. constipation, Resource 2.0 60 mL p.o. three times a day, Pataday one drop both eyes daily, Thomson-3 fatty acid two capsules p.o. daily, oxycodone 10 mg oral q.8 h p.r.n. pain, pantoprazole 40 mg p.o. daily, MiraLAX 17 g daily p.r.n. constipation, prednisone 10 mg p.o. twice daily, Roflumilast 500 mcg p.o. daily, tamsulosin two capsule oral daily 0.5 mg each capsule, Spiriva two puffs inhaler daily, Desyrel 50 mg at bedtime, valsartan 80 mg p.o. daily. PHYSICAL EXAMINATION: VITAL SIGNS: Blood pressure is 131/89, respirations 36, pulse of 130, temperature 98.1 degrees Fahrenheit, O2 saturation 98% on nasal cannula at flow rate of 5.0. GENERAL: This is a very unfortunate 63-year-old gentleman, in severe respiratory distress, nasal cannula oxygen chronically, lethargic. HEENT: Atraumatic and normocephalic. Anicteric. Pupils are equal, round, and reactive to light and accommodation. Extraocular muscles intact. NECK: JVP less than 5 cm. No carotid bruit. CVS: Distant S1 and S2. I do not appreciate murmurs, gallops, or rubs. LUNGS: Diminished breath sounds all lungs. ABDOMEN: Soft, nontender, nondistended. No hepatosplenomegaly. Positive bowel sounds. EXTREMITIES: No evidence of edema, clubbing, or cyanosis. LABORATORY FINDINGS: WBC 14.9, hemoglobin 12.7, hematocrit of 39.4, and platelet count is 214. Sodium 138, potassium 3.8, chloride 94, bicarbonate 40, BUN 12, creatinine 0.7, glucose 144, calcium is 9.1. Troponin I 0.003. CK-MB 9.0. ProBNP was 404. INR is 0.8. Chest x-ray shows no acute cardiopulmonary disease, upper lobe mildly hyperlucent, normal cardiac silhouette. Calcification of aorta. A 12-lead electrocardiogram shows atrial fibrillation with rapid ventricular response at 116. ASSESSMENT AND PLAN: The patient is an very unfortunate 63-year-old gentleman, seen in Cardiology consultation. 1. Most likely permanent atrial fibrillation. The patient can be placed on combination of digoxin and diltiazem. We are trying to control the patient's rhythm, it appears that the patient has paroxysmal atrial fibrillation. 2. Paroxysmal atrial fibrillation. The patient in and out of atrial fibrillation with rapid ventricular response. Digoxin 0.5 IV push was given. The patient will be placed on 0.25 mg p.o. daily, diltiazem 180 mg daily started. The patient also received 5 mg IV metoprolol for rate control. Currently atrial fibrillation with heart rate of 95. 3. Given the fact the patient is DNR/DNI probably not a suitable candidate for anticoagulation therapy. In fact, the patient also tends to harm himself by pulling the IV; therefore, anticoagulation is contraindicated at this point. 4. Severe hypercarbic hypoxemic respiratory failure, chronic. Pulmonary followup. 5. Chronic obstructive pulmonary disease. 6. I would like to obtain 2D echocardiography for assessment of LV systolic and diastolic function. 7. I would like to measure pulmonary artery pressure in this patient. I would like to thank, Dr. Ospina, for the courtesy of this consultation. Lars De Anda M.D. DR: Griselda JOB#: [id number] CC:
[2019-03-10] VITALS: BP 119/77
[2019-03-10] MEDS: LORazepam Inj 2mg/ml 1ml IV PRN ×2 (02:06→13:29)
[2019-03-10] MEDS: Albuterol/Ipratropium 3ml neb HHN PRN ×2 (02:49→23:09)
[2019-03-10 04:00] VITALS: BP 114/68
[2019-03-10] MEDS: Zosyn 3.375gm q8h **Extended infusion IVPB SCH ×6 (05:11→23:50)
[2019-03-10] MEDS: dilTIAZem HCl 90mg tab ORAL SCH ×4 (05:14→23:51)
[2019-03-10] MEDS: Morphine Sulfate 2mg/ml Inj(IV/IM USE ONLY) IVP PRN ×3 (06:14→14:34)
[2019-03-10 06:57] LABS: HEMATOCRIT 35.4 % (42.0-52.0); HEMOGLOBIN 11.4 G/DL (14.2-18.0); MEAN CORPUSCULAR VOLUME 88 FL (80-99); PLATELET COUNT 249 K/UL (150-450); RED BLOOD COUNT 4.01 M/UL (4.70-6.10); RED CELL DISTRIBUTION WIDTH 12.8 % (11.6-14.8); WHITE BLOOD COUNT 10.1 K/UL (4.8-10.8)
--- NOTE | 2019-03-10 07:40 | NUR ---
HAND-OFF: Report given to Tomasa LAL. Plan of care endorsed.
--- NOTE | 2019-03-10 07:45 | NUR ---
NURSE NOTES: Report received from Antolin LAL.Pt awake,alert eating breakfast noted no resp distress,no signs of pain or discomfort,SR on the monitor,uses urinal,but incontinent on and off,,IV site to RFA intact skin warm and dry,SR up x2 HOB elevated ,bed lock in lowest position ,will continue with plans of care.
[2019-03-10 07:46] LABS: ALANINE AMINOTRANSFERASE 21 U/L (12-78); ANION GAP 4 mmol/L (5-15); ASPARTATE AMINO TRANSFERASE 14 U/L (15-37); BILIRUBIN,TOTAL 0.3 MG/DL (0.2-1.0); BLOOD UREA NITROGEN 11 mg/dL (7-18); CALCIUM 8.9 MG/DL (8.5-10.1); CARBON DIOXIDE 38 MMOL/L (21-32); CHLORIDE 99 MMOL/L (98-107); CREATININE 0.7 MG/DL (0.55-1.30); POTASSIUM 3.9 MMOL/L (3.5-5.1); SODIUM 141 MMOL/L (136-145)
[2019-03-10 07:47] LABS: ALBUMIN 2.8 G/DL (3.4-5.0); ALBUMIN/GLOBULIN RATIO 0.8 (1.0-2.7); ALKALINE PHOSPHATASE 66 U/L (46-116)
--- NOTE | 2019-03-10 08:59 | NUR ---
P.T Note: Pt refused P.T services and requested to D/C P.T. despite explaining the benefits of P.T. D/C P.T services. RN notified.
[2019-03-10 09:00] VITALS: BP 113/66
[2019-03-10] MEDS: Theophylline ER 100mg ORAL SCH ×2 (09:18→20:43)
[2019-03-10] MEDS: Atovaquone 750mg/5ml Susp ORAL SCH (09:19)
[2019-03-10] MEDS: PARoxetine 20mg tab ORAL SCH (09:19)
[2019-03-10] MEDS: Montelukast 10mg tablet ORAL SCH (09:19)
[2019-03-10] MEDS: Lactulose 20gm/30ml UDC ORAL SCH ×3 (09:19→18:00)
[2019-03-10] MEDS: Docusate 100mg cap ORAL SCH ×3 (09:20→18:00)
[2019-03-10] MEDS: Heparin 5000 units/ml inj SUBQ SCH ×2 (09:22→20:44)
--- NOTE | 2019-03-10 10:25 | NUR ---
NURSE NOTES: Pt c/o generalized pain,given Morphine 2mg ivp ,will continue to monitor pt's pain tolerance.
[2019-03-10] MEDS: dilTIAZem HCl CD 180mg cap ORAL SCH (10:28)
[2019-03-10] MEDS: Digoxin 0.5mg/2ml Inj IVP SCH (10:29)
--- NOTE | 2019-03-10 11:22 | Pulmonology Progress Note ---
Assessment/Plan Problems: (1) Atrial fibrillation (2) COPD with acute exacerbation (3) End stage COPD (4) Emphysema of lung (5) Diabetes mellitus (6) GERD (gastroesophageal reflux disease) (7) Bipolar 1 disorder Assessment/Plan respiratory treatment titrate fio2 to sat of 92% antitussives cardiology note appreciated. sliding scale diabetic diet Subjective ROS Limited/Unobtainable: No Constitutional: Reports: no symptoms HEENT: Repors: no symptoms Allergies: Coded Allergies: BUPROPION (Verified Allergy, Unknown, 03/08/19) ETHAMBUTOL (Verified Allergy, Unknown, 03/08/19) GABAPENTIN (Verified Allergy, Unknown, 03/08/19) ISONIAZID (Verified Allergy, Unknown, 03/08/19) METHYLPREDNISOLONE (Verified Allergy, Unknown, 03/08/19) PHENYTOIN (Verified Allergy, Unknown, 03/08/19) PYRAZINAMIDE (Verified Allergy, Unknown, 03/08/19) RIFAMPIN (Verified Allergy, Unknown, 03/08/19) SULFA (SULFONAMIDE ANTIBIOTICS) (Verified Allergy, Unknown, 03/08/19) Objective Last 24 Hour Vital Signs Date Time Temp Pulse Resp B/P (MAP) Pulse Ox O2 Delivery O2 Flow Rate FiO2 03/10/19 10:29 70 03/10/19 10:28 70 113/66 03/10/19 09:00 97.6 70 23 113/66 (82) 98 70 03/10/19 05:14 85 114/68 03/10/19 04:00 85 03/10/19 04:00 97.0 76 18 114/68 (83) 97 03/10/19 02:59 81 22 99 Nasal Cannula 2.0 03/10/19 02:49 83 22 99 03/10/19 00:00 18 97 03/10/19 00:00 84 03/10/19 00:00 97.5 79 119/77 (91) 03/09/19 23:15 75 127/68 03/09/19 23:11 75 127/68 (87) 03/09/19 21:00 Nasal Cannula 2.0 03/09/19 20:52 91 20 99 Nasal Cannula 2.0 28 03/09/19 20:44 87 20 98 Nasal Cannula 2.0 28 03/09/19 20:44 98 Nasal Cannula 2.0 28 03/09/19 20:44 87 20 98 9/17/19 20:00 99 03/09/19 20:00 98.0 82 18 115/80 (92) 98 03/09/19 18:04 128 135/95 03/09/19 16:00 2.0 03/09/19 16:00 96.9 128 25 135/95 (108) 97 03/09/19 15:21 90 03/09/19 15:18 126 132/92 03/09/19 15:17 126 132/92 03/09/19 15:17 126 03/09/19 15:00 98.6 03/09/19 13:40 98.6 130 23 142/94 (110) 96 126 03/09/19 12:53 109 145/100 03/09/19 12:01 126 03/09/19 12:00 2.0 03/09/19 12:00 98.3 109 23 145/100 (115) 97 109 03/09/19 11:46 128 144/110 Intake and Output 03/09/19 03/10/19 18:59 06:59 Intake Total 1220.0 ml 960 ml Output Total 1000 ml 1150 ml Balance 220.0 ml -190 ml Intake Oral 1000 ml 960 ml IV Total 220.0 ml Output Urine Total 1000 ml 1150 ml # Voids 8 3 # Bowel Movements 1 1 General Appearance: WD/WN HEENT: normocephalic, atraumatic Respiratory/Chest: chest wall non-tender, lungs clear Cardiovascular: normal peripheral pulses, normal rate Abdomen: normal bowel sounds, soft, non tender Genitourinary: normal external genitalia Extremities: no cyanosis Skin: no rash Neurologic/Psychiatric: general manager II-XII grossly normal Microbiology Date/Time Source Procedure Growth Status 03/08/19 18:40 Blood Blood Culture - Preliminary NO GROWTH AFTER 24 HOURS Resulted 03/08/19 18:25 Blood Blood Culture - Preliminary NO GROWTH AFTER 24 HOURS Resulted 03/08/19 21:00 Rectum VRE Culture - Final Enterococcus Faecalis - Vre Complete Laboratory Tests 03/10/19 05:27: White Blood Count 10.1, Red Blood Count 4.01L, Hemoglobin 11.4L, Hematocrit 35.4L, Mean Corpuscular Volume 88, Mean Corpuscular Hemoglobin 28.3, Mean Corpuscular Hemoglobin Concent 32.1, Red Cell Distribution Width 12.8, Platelet Count 249, Mean Platelet Volume 5.8L, Neutrophils (%) (Auto) , Lymphocytes (%) ( Auto) , Monocytes (%) (Auto) , Eosinophils (%) (Auto) , Basophils (%) (Auto) , Differential Total Cells Counted 100, Neutrophils % (Manual) 90H, Lymphocytes % (Manual) 4L, Monocytes % (Manual) 6, Eosinophils % (Manual) 0, Basophils % ( Manual) 0, Band Neutrophils 0, Platelet Estimate Adequate, Platelet Morphology Normal, Red Blood Cell Morphology Normal, Sodium Level 141, Potassium Level 3.9 , Chloride Level 99, Carbon Dioxide Level 38H, Anion Gap 4L, Blood Urea Nitrogen 11, Creatinine 0.7, Estimat Glomerular Filtration Rate > 60, Glucose Level 159H, Calcium Level 8.9, Phosphorus Level 3.0, Magnesium Level 2.3, Total Bilirubin 0.3, Aspartate Amino Transf (AST/SGOT) 14L, Alanine Aminotransferase ( ALT/SGPT) 21, Alkaline Phosphatase 66, Total Protein 6.2L, Albumin 2.8L, Globulin 3.4, Albumin/Globulin Ratio 0.8L Current Medications Medications (Trade) Dose Ordered Sig/Kelton Route PRN Reason Start Time Stop Time Status Last Admin Dose Admin Albuterol/ Ipratropium (Albuterol/ Ipratropium) 3 ml Q4H PRN HHN dyspnea 03/08/19 21:00 03/13/19 20:59 03/10/19 02:49 Atovaquone (Mepron Susp) 1,500 mg DAILY ORAL 03/10/19 09:00 04/09/19 08:59 03/10/19 09:19 Dextrose (Dextrose 50%) 25 ml Q30M PRN IV Hypoglycemia 03/08/19 21:00 04/07/19 20:59 Dextrose (Dextrose 50%) 50 ml Q30M PRN IV Hypoglycemia 03/08/19 21:00 04/07/19 20:59 Digoxin (Lanoxin) 0.25 mg DAILY IVP 03/10/19 09:00 04/09/19 08:59 03/10/19 10:29 Diltiazem HCl (Cardizem CD) 180 mg DAILY ORAL 03/09/19 15:06 04/08/19 15:05 03/10/19 10:28 Diltiazem HCl (Cardizem) 10 mg Q1H PRN IVP HR >110 03/09/19 07:29 04/08/19 07:28 03/09/19 11:46 Diltiazem HCl (Cardizem) 90 mg Q6HR ORAL 03/09/19 00:00 04/08/19 00:00 03/10/19 05:14 Docusate Sodium (Colace) 100 mg THREE TIMES A DAY ORAL 03/09/19 13:00 04/08/19 12:59 03/10/19 09:20 Finasteride (Proscar) 5 mg QHS ORAL 03/08/19 21:00 04/07/19 20:59 03/09/19 20:19 Heparin Sodium (Porcine) (Heparin 5000 units/ml) 5,000 units EVERY 12 HOURS SUBQ 03/08/19 21:00 04/07/19 20:59 03/10/19 09:22 Lactulose (Cephulac) 30 gm THREE TIMES A DAY ORAL 03/09/19 13:00 04/08/19 12:59 03/10/19 09:19 Lorazepam (Ativan 2mg/ml 1ml) 0.5 mg Q4H PRN IV For Anxiety 03/08/19 21:00 03/15/19 20:59 03/10/19 02:06 Mineral Oil (Fleet's Mineral Oil Enema) 133 ml EVERY OTHER DAY RECTAL 03/11/19 09:00 04/10/19 08:59 Montelukast Sodium (Singulair) 10 mg DAILY ORAL 03/09/19 09:00 04/08/19 08:59 03/10/19 09:19 Morphine Sulfate (Morphine Sulfate) 2 mg Q4H PRN IVP Severe Pain (Pain Scale 7-10) 03/08/19 21:00 03/15/19 20:59 03/10/19 10:26 Nitroglycerin (Ntg) 0.4 mg Q5MIN X 3 DOSES PRN SL Prn Chest Pain 03/08/19 21:00 04/07/19 20:59 Ondansetron HCl (Zofran) 4 mg Q6H PRN IVP Nausea & Vomiting 03/08/19 21:00 04/07/19 20:59 03/09/19 05:38 Paroxetine HCl (Paxil) 20 mg DAILY ORAL 03/09/19 10:47 04/08/19 10:46 03/10/19 09:19 Piperacillin Sod/ Tazobactam Sod 3.375 gm/Sodium Chloride 110 ml @ 27.5 mls/hr EVERY 8 HOURS IVPB 03/08/19 22:00 03/13/19 21:59 03/10/19 05:11 Prednisone (predniSONE) 60 mg Q12HR ORAL 03/09/19 21:00 04/08/19 08:59 03/10/19 09:19 Promethazine HCl/ Codeine (Phenergan with Codeine) 5 ml Q6H PRN ORAL cough 03/08/19 21:00 04/07/19 20:59 Quetiapine Fumarate (SEROquel) 100 mg TID ORAL 03/09/19 18:00 04/08/19 17:59 03/10/19 09:19 Temazepam (Restoril) 15 mg HSPRN PRN ORAL Insomnia 03/08/19 21:00 03/15/19 20:59 03/09/19 20:19 Theophylline (Yobany-Dur) 100 mg EVERY 12 HOURS ORAL 03/08/19 21:00 04/07/19 20:59 03/10/19 09:18 Chante Treviño MD Mar 10, 2019 11:22
--- NOTE | 2019-03-10 11:30 | Progress Note ---
DATE: 03/10/2019 SUBJECTIVE: This is a 63-year-old male patient with COPD. He is very anxious, confused, disorganized, and mood labile, worsened by stress of his medical illness. That is why, his attending has requested daily psychiatric consultation. DIAGNOSIS: Paranoid schizophrenia with acute exacerbation. PLAN: Treat him with Paxil 20 mg a day, Ativan 0.5 mg IV q.4 hours p.r.n. anxiety and agitation and also Seroquel throughout the day to help stabilize his mood. Provided him with 20 minutes of cognitive behavioral therapy to help him identify his automatic negative thinking and convert those automatic negative thoughts to more positive thoughts to reduce depression, anxiety, and mood lability. A 20 minutes of cognitive behavioral therapy provided. Chart reviewed. Discussed with staff. Seen and assessed in his room. Catherine Plummer M.D. DR: ALEXA JOB#: [id number] CC:
[2019-03-10 12:00] VITALS: BP 115/68
--- NOTE | 2019-03-10 12:06 | CDS Physician Query ---
Clarification is required for compliance, coding accuracy, and to reflect severity of illness for this patient Dear Dr. Danish Ospina D.O. Date: 03/10/2019 [employer]/CDS Name: Jacob Fung "Altered Mental Status / Confusion / ALOC" documented in H&P Please indicate the nature and chronicity of the condition below: [] Metabolic Encephalopathy [] Toxic Encephalopathy [] Toxic - Metabolic Encephalopathy [] Encephalopathy, Other [] Dementia with Delirium [] Hypoxic encephalopathy [] Posterior reversible encephalopathy syndrome [] Other: [] Not Applicable Present on Admission: [] Yes [] No [] Clinically Undetermined Physician signature Date Please also document in your Progress Notes and/or Discharge Summary and indicate if the condition was present on admission. RAYMONDD
--- NOTE | 2019-03-10 12:10 | CDS Physician Query ---
Clarification is required for compliance, coding accuracy, and to reflect severity of illness for this patient Dear Dr. Danish Ospina D.O. Date: CDS: Jacob Fung According to the clinical indications above, please indicate below the condition Pt has: Urinary tract infection, Respiratory acidosis, Altered mental status Labs: WBC: 14,9 Vitals: HR:98/min; RR: 36/min Tx: IV PIPERACILLIN/TAZOBACTAM PHYSICIAN RESPONSE: Sepsis SIRS SIRS with organ dysfunction Septic Shock Not applicable Other: Present on Admission: Yes No Clinically Undetermined Physician signature Date Please also document in your Progress Notes and/or Discharge Summary and indicate if the condition was present on admission. RAYMONDD
--- NOTE | 2019-03-10 13:30 | NUR ---
NURSE NOTES: Pt very anxious ,requesting for more pain medication but not due yet,pt given Ativan 0.5 mg IV. instead to calm down.
--- NOTE | 2019-03-10 14:17 | General Progress Note ---
Assessment/Plan Problem List: (1) Emphysema of lung ICD Codes: J43.9 - Emphysema, unspecified SNOMED: 36296121 (2) COPD exacerbation ICD Codes: J44.1 - Chronic obstructive pulmonary disease with (acute) exacerbation SNOMED: 834258699 (3) Bipolar 1 disorder ICD Codes: F31.9 - Bipolar disorder, unspecified SNOMED: 001388339 (4) Generalized anxiety disorder ICD Codes: F41.1 - Generalized anxiety disorder SNOMED: 55312596 (5) GERD (gastroesophageal reflux disease) ICD Codes: K21.9 - Gastro-esophageal reflux disease without esophagitis SNOMED: 936230780 (6) Diabetes mellitus ICD Codes: E11.9 - Type 2 diabetes mellitus without complications SNOMED: 52836776 Status: stable, progressing Assessment/Plan: o2 pulm tx pt diet cbc bmp am Subjective Constitutional: Reports: weakness Allergies: Coded Allergies: BUPROPION (Verified Allergy, Unknown, 03/08/19) ETHAMBUTOL (Verified Allergy, Unknown, 03/08/19) GABAPENTIN (Verified Allergy, Unknown, 03/08/19) ISONIAZID (Verified Allergy, Unknown, 03/08/19) METHYLPREDNISOLONE (Verified Allergy, Unknown, 03/08/19) PHENYTOIN (Verified Allergy, Unknown, 03/08/19) PYRAZINAMIDE (Verified Allergy, Unknown, 03/08/19) RIFAMPIN (Verified Allergy, Unknown, 03/08/19) SULFA (SULFONAMIDE ANTIBIOTICS) (Verified Allergy, Unknown, 03/08/19) All Systems: reviewed and negative except above Subjective o2nc sleepy Objective Last 24 Hour Vital Signs Date Time Temp Pulse Resp B/P (MAP) Pulse Ox O2 Delivery O2 Flow Rate FiO2 03/10/19 12:23 76 155/77 03/10/19 12:00 97.3 81 23 115/68 (84) 100 03/10/19 12:00 83 03/10/19 10:29 70 03/10/19 10:28 70 113/66 03/10/19 09:00 97.6 70 23 113/66 (82) 98 70 03/10/19 09:00 Nasal Cannula 2.0 03/10/19 08:00 73 03/10/19 05:14 85 114/68 03/10/19 04:00 85 03/10/19 04:00 97.0 76 18 114/68 (83) 97 03/10/19 02:59 81 22 99 Nasal Cannula 2.0 28 03/10/19 02:49 83 22 99 03/10/19 00:00 18 97 03/10/19 00:00 84 03/10/19 00:00 97.5 79 119/77 (91) 03/09/19 23:15 75 127/68 03/09/19 23:11 75 127/68 (87) 03/09/19 21:00 Nasal Cannula 2.0 03/09/19 20:52 91 20 99 Nasal Cannula 2.0 28 03/09/19 20:44 87 20 98 Nasal Cannula 2.0 28 03/09/19 20:44 98 Nasal Cannula 2.0 28 03/09/19 20:44 87 20 98 03/09/19 20:00 99 03/09/19 20:00 98.0 82 18 115/80 (92) 98 03/09/19 18:04 128 135/95 03/09/19 16:00 2.0 03/09/19 16:00 96.9 128 25 135/95 (108) 97 03/09/19 15:21 90 03/09/19 15:18 126 132/92 03/09/19 15:17 126 132/92 03/09/19 15:17 126 03/09/19 15:00 98.6 Intake and Output 03/09/19 03/10/19 19:00 07:00 Intake Total 1220.0 ml 960 ml Output Total 1000 ml 1150 ml Balance 220.0 ml -190 ml Intake Oral 1000 ml 960 ml IV Total 220.0 ml Output Urine Total 1000 ml 1150 ml # Voids 8 3 # Bowel Movements 1 1 Laboratory Tests 03/10/19 05:27: White Blood Count 10.1, Red Blood Count 4.01L, Hemoglobin 11.4L, Hematocrit 35.4L, Mean Corpuscular Volume 88, Mean Corpuscular Hemoglobin 28.3, Mean Corpuscular Hemoglobin Concent 32.1, Red Cell Distribution Width 12.8, Platelet Count 249, Mean Platelet Volume 5.8L, Neutrophils (%) (Auto) , Lymphocytes (%) ( Auto) , Monocytes (%) (Auto) , Eosinophils (%) (Auto) , Basophils (%) (Auto) , Differential Total Cells Counted 100, Neutrophils % (Manual) 90H, Lymphocytes % (Manual) 4L, Monocytes % (Manual) 6, Eosinophils % (Manual) 0, Basophils % ( Manual) 0, Band Neutrophils 0, Platelet Estimate Adequate, Platelet Morphology Normal, Red Blood Cell Morphology Normal, Sodium Level 141, Potassium Level 3.9 , Chloride Level 99, Carbon Dioxide Level 38H, Anion Gap 4L, Blood Urea Nitrogen 11, Creatinine 0.7, Estimat Glomerular Filtration Rate > 60, Glucose Level 159H, Calcium Level 8.9, Phosphorus Level 3.0, Magnesium Level 2.3, Total Bilirubin 0.3, Aspartate Amino Transf (AST/SGOT) 14L, Alanine Aminotransferase ( ALT/SGPT) 21, Alkaline Phosphatase 66, Total Protein 6.2L, Albumin 2.8L, Globulin 3.4, Albumin/Globulin Ratio 0.8L Height (Feet): 5 Height (Inches): 3.00 Weight (Pounds): 131 General Appearance: lethargic EENT: normal ENT inspection Neck: normal alignment Cardiovascular: normal peripheral pulses, normal rate, regular rhythm Respiratory/Chest: chest wall non-tender, lungs clear, normal breath sounds Abdomen: normal bowel sounds, non tender, soft Extremities: normal inspection Edema: no edema noted Arm (L), no edema noted Arm (R), no edema noted Leg (L), no edema noted Leg (R), no edema noted Pedal (L), no edema noted Pedal (R), no edema noted Generalized Neurologic: motor weakness Skin: normal pigmentation, warm/dry Danish Ospina DO Mar 10, 2019 14:17
[2019-03-10 16:08] VITALS: BP 149/70
--- NOTE | 2019-03-10 18:00 | NUR ---
NURSE NOTES: Pt with 3 diarrhea stools at his time,Colace 100 mg po and Lactulose 45ml not given.will continue to monitor pt's BM.
--- NOTE | 2019-03-10 19:00 | NUR ---
HAND-OFF: Report given to Angel RN,Pt very confused at this time and needy.
--- NOTE | 2019-03-10 19:15 | NUR ---
NURSE NOTES: Received patient from LUKASZ Randolph. Patient awake, talkative, and in semi-steele's position in bed. Patient confused, but able to communicate needs. D5W running at 75 mL/hr, IV intact and patent, no signs of redness, infiltration, or bleeding. Bed in lowest position, brakes on, and call light within reach.
[2019-03-10 20:00] VITALS: BP 116/77
[2019-03-11] VITALS: BP 134/73
[2019-03-11 04:00] VITALS: BP 135/81
[2019-03-11] MEDS: Zosyn 3.375gm q8h **Extended infusion IVPB SCH ×6 (06:43→21:41)
[2019-03-11] MEDS: dilTIAZem HCl 90mg tab ORAL SCH (06:44)
[2019-03-11 06:56] LABS: HEMATOCRIT 35.4 % (42.0-52.0); HEMOGLOBIN 11.4 G/DL (14.2-18.0); MEAN CORPUSCULAR VOLUME 89 FL (80-99); PLATELET COUNT 236 K/UL (150-450); RED CELL DISTRIBUTION WIDTH 12.8 % (11.6-14.8); WHITE BLOOD COUNT 12.8 K/UL (4.8-10.8)
[2019-03-11 07:10] LABS: ANION GAP 2 mmol/L (5-15); BLOOD UREA NITROGEN 13 mg/dL (7-18); CALCIUM 8.7 MG/DL (8.5-10.1); CARBON DIOXIDE 40 MMOL/L (21-32); CHLORIDE 100 MMOL/L (98-107); CREATININE 0.6 MG/DL (0.55-1.30); POTASSIUM 3.7 MMOL/L (3.5-5.1); SODIUM 142 MMOL/L (136-145)
--- NOTE | 2019-03-11 07:46 | NUR ---
HAND-OFF: Report given to LUKASZ Park. Patient is asleep lying semi-steele's; resting comfortably. On 2L nasal cannula. In stable condition.
--- NOTE | 2019-03-11 07:59 | NUR ---
NURSE NOTES: Received report from LUKASZ Lopez. Patient in bed resting, no active s/s cardiac, respiratory distress noticed at this time. Patient AOx2-3, on 2L oxygen via NC, SR with HR 72 at this time. IV on right FA 22G, asymptomatic, patent, intact. Bed in lowest position, side rails upx3, call light within reach. Will continue to monitor.
[2019-03-11 08:00] VITALS: BP 157/107
[2019-03-11] MEDS: Albuterol/Ipratropium 3ml neb HHN PRN ×3 (08:30→19:04)
[2019-03-11] MEDS ORDERED: Fleet's Mineral Oil Enema RECTAL SCH (09:00)
[2019-03-11] MEDS: dilTIAZem HCl CD 180mg cap ORAL SCH (09:33)
[2019-03-11] MEDS: Docusate 100mg cap ORAL SCH ×3 (09:33→17:48)
[2019-03-11] MEDS: Theophylline ER 100mg ORAL SCH ×2 (09:34→21:41)
[2019-03-11] MEDS: PARoxetine 20mg tab ORAL SCH (09:34)
[2019-03-11] MEDS: Montelukast 10mg tablet ORAL SCH (09:34)
[2019-03-11] MEDS: Lactulose 20gm/30ml UDC ORAL SCH (09:34)
[2019-03-11] MEDS: Atovaquone 750mg/5ml Susp ORAL SCH (09:34)
[2019-03-11] MEDS: Digoxin 0.5mg/2ml Inj IVP SCH (09:35)
[2019-03-11] MEDS: Heparin 5000 units/ml inj SUBQ SCH ×2 (09:37→21:42)
[2019-03-11] MEDS: Morphine Sulfate 2mg/ml Inj(IV/IM USE ONLY) IVP PRN (09:53)
--- NOTE | 2019-03-11 10:38 | Pulmonology Progress Note ---
Assessment/Plan Problems: (1) COPD with acute exacerbation (2) End stage COPD (3) Emphysema of lung (4) Atrial fibrillation (5) Diabetes mellitus (6) GERD (gastroesophageal reflux disease) (7) Bipolar 1 disorder Assessment/Plan respiratory treatment titrate fio2 to sat of 92% antitussives taper steroids increases wbc most likely secondary to steroids cardiology note appreciated. sliding scale diabetic diet Subjective ROS Limited/Unobtainable: No Constitutional: Reports: no symptoms HEENT: Repors: no symptoms Respiratory: Reports: no symptoms Allergies: Coded Allergies: BUPROPION (Verified Allergy, Unknown, 03/08/19) ETHAMBUTOL (Verified Allergy, Unknown, 03/08/19) GABAPENTIN (Verified Allergy, Unknown, 03/08/19) ISONIAZID (Verified Allergy, Unknown, 03/08/19) METHYLPREDNISOLONE (Verified Allergy, Unknown, 03/08/19) PHENYTOIN (Verified Allergy, Unknown, 03/08/19) PYRAZINAMIDE (Verified Allergy, Unknown, 03/08/19) RIFAMPIN (Verified Allergy, Unknown, 03/08/19) SULFA (SULFONAMIDE ANTIBIOTICS) (Verified Allergy, Unknown, 03/08/19) Objective Last 24 Hour Vital Signs Date Time Temp Pulse Resp B/P (MAP) Pulse Ox O2 Delivery O2 Flow Rate FiO2 03/11/19 09:35 92 03/11/19 09:33 92 157/105 03/11/19 09:00 Nasal Cannula 2.0 03/11/19 08:28 88 26 99 Nasal Cannula 2.0 28 03/11/19 08:28 99 Nasal Cannula 2.0 28 03/11/19 08:00 98.3 92 20 157/107 (124) 99 03/11/19 08:00 87 03/11/19 06:44 77 135/81 03/11/19 04:00 97.7 72 18 135/81 (99) 99 03/11/19 04:00 77 03/11/19 00:00 97.5 80 24 134/73 (93) 96 03/11/19 00:00 97 03/10/19 23:51 80 134/73 03/10/19 23:10 90 20 99 Nasal Cannula 2.0 28 87 20 95 03/10/19 21:00 Nasal Cannula 2.0 03/10/19 20:11 97 Nasal Cannula 2.0 28 03/10/19 20:11 86 18 97 Nasal Cannula 2.0 28 03/10/19 20:00 97.5 82 18 116/77 (90) 96 03/10/19 20:00 97 03/10/19 18:20 96 149/70 03/10/19 16:08 97.9 96 23 149/70 (96) 96 03/10/19 16:00 104 03/10/19 12:23 76 155/77 03/10/19 12:00 97.3 81 23 115/68 (84) 100 03/10/19 12:00 83 Intake and Output 03/10/19 03/11/19 19:00 07:00 Intake Total 480 ml 477.8 ml Output Total 826 ml 800 ml Balance -346 ml -322.2 ml Intake Oral 480 ml IV Total 117.8 ml Other 360 ml Output Urine Total 825 ml 800 ml Stool Total 1 ml # Voids 5 # Bowel Movements 3 1 General Appearance: WD/WN HEENT: normocephalic, atraumatic Respiratory/Chest: chest wall non-tender, lungs clear Cardiovascular: normal peripheral pulses, normal rate Abdomen: normal bowel sounds, soft, non tender Genitourinary: normal external genitalia Extremities: no cyanosis Skin: no lesions Neurologic/Psychiatric: oil and gas drafter II-XII grossly normal, no motor/sensory deficits Microbiology Date/Time Source Procedure Growth Status 03/08/19 18:40 Blood Blood Culture - Preliminary NO GROWTH AFTER 48 HOURS Resulted 03/08/19 18:25 Blood Blood Culture - Preliminary NO GROWTH AFTER 48 HOURS Resulted 03/08/19 21:00 Rectum VRE Culture - Final Enterococcus Faecalis - Vre Complete Laboratory Tests 03/11/19 05:28: White Blood Count 12.8H, Red Blood Count 4.00L, Hemoglobin 11.4L, Hematocrit 35.4L, Mean Corpuscular Volume 89, Mean Corpuscular Hemoglobin 28.5, Mean Corpuscular Hemoglobin Concent 32.2, Red Cell Distribution Width 12.8, Platelet Count 236, Mean Platelet Volume 5.8L, Neutrophils (%) (Auto) , Lymphocytes (%) ( Auto) , Monocytes (%) (Auto) , Eosinophils (%) (Auto) , Basophils (%) (Auto) , Differential Total Cells Counted 100, Neutrophils % (Manual) 93H, Lymphocytes % (Manual) 5L, Monocytes % (Manual) 2, Eosinophils % (Manual) 0, Basophils % ( Manual) 0, Band Neutrophils 0, Platelet Estimate Adequate, Platelet Morphology Normal, Red Blood Cell Morphology Normal, Sodium Level 142, Potassium Level 3.7 , Chloride Level 100, Carbon Dioxide Level 40H, Anion Gap 2L, Blood Urea Nitrogen 13, Creatinine 0.6, Estimat Glomerular Filtration Rate > 60, Glucose Level 146H, Calcium Level 8.7 Current Medications Medications (Trade) Dose Ordered Sig/Kelton Route PRN Reason Start Time Stop Time Status Last Admin Dose Admin Albuterol/ Ipratropium (Albuterol/ Ipratropium) 3 ml Q4H PRN HHN dyspnea 03/08/19 21:00 03/13/19 20:59 03/11/19 08:30 Atovaquone (Mepron Susp) 1,500 mg DAILY ORAL 03/10/19 09:00 04/09/19 08:59 03/11/19 09:34 Dextrose (Dextrose 50%) 25 ml Q30M PRN IV Hypoglycemia 03/08/19 21:00 04/07/19 20:59 Dextrose (Dextrose 50%) 50 ml Q30M PRN IV Hypoglycemia 03/08/19 21:00 04/07/19 20:59 Digoxin (Lanoxin) 0.25 mg DAILY IVP 03/10/19 09:00 04/09/19 08:59 03/11/19 09:35 Diltiazem HCl (Cardizem CD) 180 mg DAILY ORAL 03/09/19 15:06 04/08/19 15:05 03/11/19 09:33 Diltiazem HCl (Cardizem) 10 mg Q1H PRN IVP HR >110 03/09/19 07:29 04/08/19 07:28 03/09/19 11:46 Docusate Sodium (Colace) 100 mg THREE TIMES A DAY ORAL 03/09/19 13:00 04/08/19 12:59 03/11/19 09:33 Finasteride (Proscar) 5 mg QHS ORAL 03/08/19 21:00 04/07/19 20:59 03/10/19 20:42 Heparin Sodium (Porcine) (Heparin 5000 units/ml) 5,000 units EVERY 12 HOURS SUBQ 03/08/19 21:00 04/07/19 20:59 03/11/19 09:37 Lactulose (Cephulac) 30 gm THREE TIMES A DAY ORAL 03/09/19 13:00 04/08/19 12:59 03/11/19 09:34 Lorazepam (Ativan 2mg/ml 1ml) 0.5 mg Q4H PRN IV For Anxiety 03/08/19 21:00 03/15/19 20:59 03/10/19 13:29 Mineral Oil (Fleet's Mineral Oil Enema) 133 ml EVERY OTHER DAY RECTAL 03/11/19 09:00 04/10/19 08:59 Montelukast Sodium (Singulair) 10 mg DAILY ORAL 03/09/19 09:00 04/08/19 08:59 03/11/19 09:34 Morphine Sulfate (Morphine Sulfate) 2 mg Q4H PRN IVP Severe Pain (Pain Scale 7-10) 03/08/19 21:00 03/15/19 20:59 03/11/19 09:53 Nitroglycerin (Ntg) 0.4 mg Q5MIN X 3 DOSES PRN SL Prn Chest Pain 03/08/19 21:00 04/07/19 20:59 Ondansetron HCl (Zofran) 4 mg Q6H PRN IVP Nausea & Vomiting 03/08/19 21:00 04/07/19 20:59 03/09/19 05:38 Paroxetine HCl (Paxil) 20 mg DAILY ORAL 03/09/19 10:47 04/08/19 10:46 03/11/19 09:34 Piperacillin Sod/ Tazobactam Sod 3.375 gm/Sodium Chloride 110 ml @ 27.5 mls/hr EVERY 8 HOURS IVPB 03/08/19 22:00 03/13/19 21:59 03/11/19 06:43 Prednisone (predniSONE) 60 mg Q12HR ORAL 03/09/19 21:00 04/08/19 08:59 03/11/19 09:34 Promethazine HCl/ Codeine (Phenergan with Codeine) 5 ml Q6H PRN ORAL cough 03/08/19 21:00 04/07/19 20:59 Quetiapine Fumarate (SEROquel) 100 mg TID ORAL 03/09/19 18:00 04/08/19 17:59 03/11/19 09:34 Temazepam (Restoril) 15 mg HSPRN PRN ORAL Insomnia 03/08/19 21:00 03/15/19 20:59 03/09/19 20:19 Theophylline (Yobany-Dur) 100 mg EVERY 12 HOURS ORAL 03/08/19 21:00 04/07/19 20:59 03/11/19 09:34 Chante Treviño MD Mar 11, 2019 10:38
[2019-03-11] MEDS ORDERED: Fleet's Mineral Oil Enema RECTAL PRN (11:00)
[2019-03-11] MEDS ORDERED: Lactulose 20gm/30ml UDC ORAL PRN (11:00)
[2019-03-11 12:00] VITALS: BP 136/75
--- NOTE | 2019-03-11 12:11 | General Progress Note ---
Assessment/Plan Problem List: (1) Emphysema of lung ICD Codes: J43.9 - Emphysema, unspecified SNOMED: 35317594 (2) COPD exacerbation ICD Codes: J44.1 - Chronic obstructive pulmonary disease with (acute) exacerbation SNOMED: 184408063 (3) Bipolar 1 disorder ICD Codes: F31.9 - Bipolar disorder, unspecified SNOMED: 726825585 (4) Generalized anxiety disorder ICD Codes: F41.1 - Generalized anxiety disorder SNOMED: 08152858 (5) GERD (gastroesophageal reflux disease) ICD Codes: K21.9 - Gastro-esophageal reflux disease without esophagitis SNOMED: 115393313 (6) Diabetes mellitus ICD Codes: E11.9 - Type 2 diabetes mellitus without complications SNOMED: 52547960 Status: stable, progressing Assessment/Plan: o2 pulm tx pt diet cbc bmp am dc plan Subjective Constitutional: Reports: weakness Allergies: Coded Allergies: BUPROPION (Verified Allergy, Unknown, 03/08/19) ETHAMBUTOL (Verified Allergy, Unknown, 03/08/19) GABAPENTIN (Verified Allergy, Unknown, 03/08/19) ISONIAZID (Verified Allergy, Unknown, 03/08/19) METHYLPREDNISOLONE (Verified Allergy, Unknown, 03/08/19) PHENYTOIN (Verified Allergy, Unknown, 03/08/19) PYRAZINAMIDE (Verified Allergy, Unknown, 03/08/19) RIFAMPIN (Verified Allergy, Unknown, 03/08/19) SULFA (SULFONAMIDE ANTIBIOTICS) (Verified Allergy, Unknown, 03/08/19) All Systems: reviewed and negative except above Subjective o2nc sleepy Objective Last 24 Hour Vital Signs Date Time Temp Pulse Resp B/P (MAP) Pulse Ox O2 Delivery O2 Flow Rate FiO2 03/11/19 09:35 92 03/11/19 09:33 92 157/105 03/11/19 09:00 Nasal Cannula 2.0 03/11/19 08:28 88 26 99 Nasal Cannula 2.0 28 03/11/19 08:28 99 Nasal Cannula 2.0 28 03/11/19 08:00 98.3 92 20 157/107 (124) 99 03/11/19 08:00 87 03/11/19 06:44 77 135/81 03/11/19 04:00 97.7 72 18 135/81 (99) 99 03/11/19 04:00 77 03/11/19 00:00 97.5 80 24 134/73 (93) 96 03/11/19 00:00 97 03/10/19 23:51 80 134/73 03/10/19 23:10 90 20 99 Nasal Cannula 2.0 28 87 20 95 03/10/19 21:00 Nasal Cannula 2.0 03/10/19 20:11 97 Nasal Cannula 2.0 28 03/10/19 20:11 86 18 97 Nasal Cannula 2.0 28 03/10/19 20:00 97.5 82 18 116/77 (90) 96 03/10/19 20:00 97 03/10/19 18:20 96 149/70 03/10/19 16:08 97.9 96 23 149/70 (96) 96 03/10/19 16:00 104 03/10/19 12:23 76 155/77 Intake and Output 03/10/19 03/11/19 19:00 07:00 Intake Total 480 ml 477.8 ml Output Total 826 ml 800 ml Balance -346 ml -322.2 ml Intake Oral 480 ml IV Total 117.8 ml Other 360 ml Output Urine Total 825 ml 800 ml Stool Total 1 ml # Voids 5 # Bowel Movements 3 1 Laboratory Tests 03/11/19 05:28: White Blood Count 12.8H, Red Blood Count 4.00L, Hemoglobin 11.4L, Hematocrit 35.4L, Mean Corpuscular Volume 89, Mean Corpuscular Hemoglobin 28.5, Mean Corpuscular Hemoglobin Concent 32.2, Red Cell Distribution Width 12.8, Platelet Count 236, Mean Platelet Volume 5.8L, Neutrophils (%) (Auto) , Lymphocytes (%) ( Auto) , Monocytes (%) (Auto) , Eosinophils (%) (Auto) , Basophils (%) (Auto) , Differential Total Cells Counted 100, Neutrophils % (Manual) 93H, Lymphocytes % (Manual) 5L, Monocytes % (Manual) 2, Eosinophils % (Manual) 0, Basophils % ( Manual) 0, Band Neutrophils 0, Platelet Estimate Adequate, Platelet Morphology Normal, Red Blood Cell Morphology Normal, Sodium Level 142, Potassium Level 3.7 , Chloride Level 100, Carbon Dioxide Level 40H, Anion Gap 2L, Blood Urea Nitrogen 13, Creatinine 0.6, Estimat Glomerular Filtration Rate > 60, Glucose Level 146H, Calcium Level 8.7 Height (Feet): 5 Height (Inches): 3.00 Weight (Pounds): 131 General Appearance: lethargic EENT: normal ENT inspection Neck: normal alignment Cardiovascular: normal peripheral pulses, normal rate, regular rhythm Respiratory/Chest: chest wall non-tender, lungs clear, normal breath sounds Abdomen: normal bowel sounds, non tender, soft Extremities: normal inspection Edema: no edema noted Arm (L), no edema noted Arm (R), no edema noted Leg (L), no edema noted Leg (R), no edema noted Pedal (L), no edema noted Pedal (R), no edema noted Generalized Neurologic: motor weakness Skin: normal pigmentation, warm/dry Danish Ospina DO Mar 11, 2019 12:11
[2019-03-11] MEDS: LORazepam Inj 2mg/ml 1ml IV PRN (15:36)
[2019-03-11 16:00] VITALS: BP 152/74
--- NOTE | 2019-03-11 18:30 | NUR ---
NURSE NOTES: Received phone call from Dr. De Anda, discontinue to Digoxin IVP change to PO digoxin PO 0.125mg Daily. Per Dr. De Anda, patient cleared from cardiology stand point, continue digoxin when discharged. Order noted, entered, carried out.
--- NOTE | 2019-03-11 18:34 | NUR ---
NURSE NOTES: Paged Dr. Plummer second time, per Dr. Plummer patient cleared from psych stand point.
--- NOTE | 2019-03-11 18:35 | Cardiology Progress Note ---
Assessment/Plan Assessment/Plan 1. Paroxysmal atrial fibrillation, continue oral digoxin 125mcg daily, will optimize diltiazem to 240mg daily. Given the fact the patient is DNR/DNI probably not a suitable candidate for anticoagulation therapy. In fact, the patient also tends to harm himself by pulling the IV; therefore, anticoagulation is contraindicated at this point. 2. Severe chronic hypercarbic hypoxemic respiratory failure. 3. Chronic obstructive pulmonary disease. Subjective Subjective Sinus rhythm art a rate of 90 earlier today. Off monitor now. Objective Last 24 Hour Vital Signs Date Time Temp Pulse Resp B/P (MAP) Pulse Ox O2 Delivery O2 Flow Rate FiO2 03/11/19 16:00 97.5 58 25 152/74 (100) 95 03/11/19 16:00 96 03/11/19 13:39 71 24 99 Nasal Cannula 2.0 28 71 24 97 03/11/19 12:00 73 03/11/19 12:00 98.6 71 20 136/75 (95) 97 03/11/19 09:35 92 03/11/19 09:33 92 157/105 03/11/19 09:00 Nasal Cannula 2.0 03/11/19 08:30 83 22 99 Nasal Cannula 2.0 28 88 26 99 03/11/19 08:28 88 26 99 Nasal Cannula 2.0 28 03/11/19 08:28 99 Nasal Cannula 2.0 28 03/11/19 08:00 98.3 92 20 157/107 (124) 99 03/11/19 08:00 87 03/11/19 06:44 77 135/81 03/11/19 04:00 97.7 72 18 135/81 (99) 99 03/11/19 04:00 77 03/11/19 00:00 97.5 80 24 134/73 (93) 96 03/11/19 00:00 97 03/10/19 23:51 80 134/73 03/10/19 23:10 90 20 99 Nasal Cannula 2.0 28 87 20 95 03/10/19 21:00 Nasal Cannula 2.0 03/10/19 20:11 97 Nasal Cannula 2.0 28 03/10/19 20:11 86 18 97 Nasal Cannula 2.0 28 03/10/19 20:00 97.5 82 18 116/77 (90) 96 03/10/19 20:00 97 Intake and Output 03/10/19 03/11/19 19:00 07:00 Intake Total 480 ml 477.8 ml Output Total 826 ml 800 ml Balance -346 ml -322.2 ml Intake Oral 480 ml IV Total 117.8 ml Other 360 ml Output Urine Total 825 ml 800 ml Stool Total 1 ml # Voids 5 # Bowel Movements 3 1 Laboratory Tests Test 03/11/19 05:28 White Blood Count 12.8 K/UL (4.8-10.8) H Red Blood Count 4.00 M/UL (4.70-6.10) L Hemoglobin 11.4 G/DL (14.2-18.0) L Hematocrit 35.4 % (42.0-52.0) L Mean Corpuscular Volume 89 FL (80-99) Mean Corpuscular Hemoglobin 28.5 PG (27.0-31.0) Mean Corpuscular Hemoglobin Concent 32.2 G/DL (32.0-36.0) Red Cell Distribution Width 12.8 % (11.6-14.8) Platelet Count 236 K/UL (150-450) Mean Platelet Volume 5.8 FL (6.5-10.1) L Neutrophils (%) (Auto) % (45.0-75.0) Lymphocytes (%) (Auto) % (20.0-45.0) Monocytes (%) (Auto) % (1.0-10.0) Eosinophils (%) (Auto) % (0.0-3.0) Basophils (%) (Auto) % (0.0-2.0) Differential Total Cells Counted 100 Neutrophils % (Manual) 93 % (45-75) H Lymphocytes % (Manual) 5 % (20-45) L Monocytes % (Manual) 2 % (1-10) Eosinophils % (Manual) 0 % (0-3) Basophils % (Manual) 0 % (0-2) Band Neutrophils 0 % (0-8) Platelet Estimate Adequate Platelet Morphology Normal Red Blood Cell Morphology Normal Sodium Level 142 MMOL/L (136-145) Potassium Level 3.7 MMOL/L (3.5-5.1) Chloride Level 100 MMOL/L (98-107) Carbon Dioxide Level 40 MMOL/L (21-32) H Anion Gap 2 mmol/L (5-15) L Blood Urea Nitrogen 13 mg/dL (7-18) Creatinine 0.6 MG/DL (0.55-1.30) Estimat Glomerular Filtration Rate > 60 mL/min (>60) Glucose Level 146 MG/DL (74-106) H Calcium Level 8.7 MG/DL (8.5-10.1) Microbiology Date/Time Source Procedure Growth Status 03/08/19 18:40 Blood Blood Culture - Preliminary NO GROWTH AFTER 48 HOURS Resulted 03/08/19 20:50 Nasal Nares MRSA Culture - Final Staphylococcus Aureus - Mrsa Complete 03/08/19 21:00 Rectum VRE Culture - Final Enterococcus Faecalis - Vre Complete Objective HEENT: Atraumatic and normocephalic. Anicteric. Pupils are equal, round, and reactive to light and accommodation. Extraocular muscles intact. NECK: JVP less than 5 cm. No carotid bruit. CVS: Distant S1 and S2. I do not appreciate murmurs, gallops, or rubs. LUNGS: Diminished breath sounds all lungs. ABDOMEN: Soft, nontender, nondistended. No hepatosplenomegaly. Positive bowel sounds. EXTREMITIES: No evidence of edema, clubbing, or cyanosis. Lars De Anda MD Mar 11, 2019 18:35
--- NOTE | 2019-03-11 19:30 | Progress Note ---
DATE: 03/11/2019 SUBJECTIVE: This is a 53-year-old male patient with COPD and altered mental status. He is confused and disorganized. He has got no logical plan for his own self-care. He has got feelings of , low energy, poor appetite, and loss of interest in activity. He has COPD, but he has got increased anxiety, depression, and mood lability. MENTAL STATUS EXAMINATION: This is a male patient, who is 63 years old. His appearance is disheveled. His attitude is irritable and agitated. His affect is currently restricted. Intellect poor. Mood, depressed and anxious. Motor activity, psychomotor agitation. Attention span is poor. Orientation x2. Speech is pressured. Thought process, disorganized and logical. Insight and judgment is poor. DIAGNOSIS: Major depression disorder, severe, recurrent with psychotic features, rule out paranoid schizophrenia. PLAN: Plan for this patient is to treat him with a medication regimen consisting of Paxil 20 mg daily, Ativan 0.5 mg IV q.4 hours p.r.n. anxiety and agitation, and also treat him with Seroquel 100 mg 3 times a day. Provided him with 20 minutes of reality-based supportive psychotherapy and encouraged him to interact appropriately with staff and other patients. He will continue to be followed by Psychiatry throughout the hospital course. A 20 minutes of cognitive behavioral therapy to help him identify his automatic negative thoughts and help him convert his negative thoughts to more positive thoughts to reduce depression, anxiety, and suicidality. Chart reviewed. Discussed with staff. Seen and assessed in his room. Cathreine Plummer M.D. DR: FAYE JOB#: [id number] CC:
--- NOTE | 2019-03-11 19:33 | NUR ---
NURSE NOTES: Dr. Ospina made aware patient cleared by cardiology, pulmo, psych. Per Dr. Ospina patient still on O2, maybe discharge tomorrow.
--- NOTE | 2019-03-11 19:39 | NUR ---
HAND-OFF: Report given to LUKASZ Sanders.
--- NOTE | 2019-03-11 19:40 | NUR ---
NURSE NOTES: Got report from Vivian LAL. Pt in stable condition. Denies any pain. No s/s of distress or discomfort noted. Pt resting in bed comfortably. Bed in low and locked position, call light within reach, bedside table within reach. Continue to monitor.
[2019-03-11 20:00] VITALS: BP 141/80
[2019-03-12] VITALS (7 sets, daily range): BP systolic 137–163; BP diastolic 65–94
[2019-03-12] MEDS: Albuterol/Ipratropium 3ml neb HHN PRN ×2 (03:02→07:17)
[2019-03-12] MEDS: Zosyn 3.375gm q8h **Extended infusion IVPB SCH ×4 (05:34→14:27)
[2019-03-12 06:27] LABS: HEMATOCRIT 37.1 % (42.0-52.0); HEMOGLOBIN 11.8 G/DL (14.2-18.0); MEAN CORPUSCULAR VOLUME 89 FL (80-99); PLATELET COUNT 230 K/UL (150-450); RED BLOOD COUNT 4.17 M/UL (4.70-6.10); RED CELL DISTRIBUTION WIDTH 13.1 % (11.6-14.8); WHITE BLOOD COUNT 13.2 K/UL (4.8-10.8)
[2019-03-12 06:40] LABS: ANION GAP 3 mmol/L (5-15); BLOOD UREA NITROGEN 17 mg/dL (7-18); CARBON DIOXIDE 39 MMOL/L (21-32); CHLORIDE 100 MMOL/L (98-107); CREATININE 0.8 MG/DL (0.55-1.30); POTASSIUM 3.8 MMOL/L (3.5-5.1); SODIUM 142 MMOL/L (136-145)
--- NOTE | 2019-03-12 07:00 | NUR ---
HAND-OFF: Report given to Dona LAL. Endorsed plan of care.
--- NOTE | 2019-03-12 07:20 | NUR ---
NURSE NOTES: pt. in bed awake and talking. Pt on desk monitor no signs of cardiac or respiratory distress. Pt on 2L oxygen. Pt has multiple skin scabs and sacral redness. Call light is within reach bed is locked and lowest position. Will continue to follow plan of care and monitor pt.
[2019-03-12] MEDS ORDERED: Digoxin 0.125mg tab ORAL SCH (09:00)
[2019-03-12] MEDS ORDERED: dilTIAZem HCl CD 240mg cap ORAL SCH (09:00)
[2019-03-12] MEDS: PARoxetine 20mg tab ORAL SCH (09:22)
[2019-03-12] MEDS: Atovaquone 750mg/5ml Susp ORAL SCH (09:22)
[2019-03-12] MEDS: Montelukast 10mg tablet ORAL SCH (09:23)
[2019-03-12] MEDS: Theophylline ER 100mg ORAL SCH (09:23)
[2019-03-12] MEDS: Docusate 100mg cap ORAL SCH ×3 (09:26→17:50)
[2019-03-12] MEDS: Heparin 5000 units/ml inj SUBQ SCH (09:26)
--- NOTE | 2019-03-12 10:30 | Consultation ---
DATE OF CONSULTATION: 03/11/2019 NOTE: POOR AUDIO PSYCHOTHERAPY CONSULTATION PROGRESS NOTE CONSULTING PHYSICIAN: Dianna Aguilar PsyD. TREATING ATTENDING PHYSICIAN: Danish Ospina D.O. HISTORY OF PRESENT ILLNESS: The patient is a 63-year-old male patient . The patient does have a history of mental illness. The patient has been extremely anxious, agitated, demanding, argumentative, and irritable, and for these reasons, he was also referred for psychotherapeutic services. The patient was brought into the hospital exacerbation. The patient has a history of bipolar disorder. We assessed the patient. The patient is restless and anxious. The patient has been very disorganized and difficult focusing and concentrating. reality orientation agitated, aggravated. He has been constantly asking nursing staff for assistance; however, repetitive difficulty focussing and asking repetitive questions. Assessed the patient he is constantly asking for more . At this time, he denies suicidal or homicidal thoughts of ideation. Denies any auditory or visual hallucinations; however, . PAST MEDICAL HISTORY: Includes history of COPD, GERD, diabetes, emphysema, and hypertension. ALLERGIES: The patient is allergic to isoniazid, rifampin, sulfa, fentanyl, ethambutol, bupropion, and methylprednisolone. SOCIAL HISTORY: The patient is a 63-year-old male. The patient from . Financially sustained through [employer]. PSYCHIATRIC HISTORY: The patient does have a history of bipolar disorder and has been treated with psychotropic medications in the past. MENTAL STATUS EXAMINATION: The patient is alert and oriented to person and place. Mood is irritable. Affect is labile. Thought process, disorganized. Thought content, delusional. He has poor attention and concentration. Poor insight, judgment, and impulse control. DIAGNOSIS: Bipolar I disorder, manic, moderate with psychotic features. I ASSESSED THIS PATIENT. PROVIDED THE PATIENT WITH: 1. Reality orientation with focus on improving cognitive function of the patient, who is confused and disorganized. Oriented to person, place, time, and situation. 2. Provided the patient with supportive psychotherapy, which provides the patient oriented, agitated, and irritable redirecting the patient's disorganized thoughts. Encouraging the patient to participate in treatment as well as medication regimen. Practicing relaxation current mood stability. Also providing him with cognitive behavioral therapy lability relaxation exercises, breathing exercises, and encouraging him to participate in treatment medication regimen. PLAN: Plan is to maintain medication compliance to assist with positive coping skills and stabilizing the thoughts and behavior. Psychotherapy was provided to this patient is 50 minutes chart and discussed the treatment with treatment team. Dianna Aguilar PsyD. DR: ERICA JOB#: [id number] CC:
--- NOTE | 2019-03-12 12:10 | NUR ---
NURSE NOTES: Patient states having hard time breathing, explained to patient may need to place BiPAP on as indicated for SOB. Pt refuses BiPAP, requesting duoneb breathing treatment, pt heart rate noted at [address] Treviño at nurse station, informed MD of situation, recommended to Xopenex 1.25 mg HHN for treatment, MD acknowledged and ordered breathing treatment. Orders entered, noted, and carried out. Will continue to monitor patient.
[2019-03-12] MEDS: Levalbuterol Inh UD 1.25mg/0.5ml HHN PRN ×2 (12:20→18:32)
--- NOTE | 2019-03-12 12:21 | NUR ---
RESPIRATORY NOTE: Pt has elevated HR, states that he is SOB, but refuses Bipap. Given Xopenex 1.25 mg. Will continue to monitor.
[2019-03-12] MEDS: Morphine Sulfate 2mg/ml Inj(IV/IM USE ONLY) IVP PRN (13:08)
--- NOTE | 2019-03-12 13:15 | Progress Note ---
DATE: 03/12/2019 SUBJECTIVE: The patient is a 63-year-old male with COPD. He is very confused and disorganized. He has got depression and mood lability, anxiety worsened by stress of his medical illness. COPD, which is worsening his mood lability. That is why, his attending has requested daily psychiatric consultation. MENTAL STATUS EXAMINATION: This is a 63-year-old male. Appearance is disheveled. Attitude, irritable and agitated. Affect, guarded and restricted. Intellect poor. Mood, depressed and anxious. Motor activity, psychomotor agitation. Attention span is poor. Orientation x2. Speech is pressured. Thought process, disorganized and illogical. Insight and judgment is poor. DIAGNOSIS: Paranoid schizophrenia with acute exacerbation. PLAN: Treat him with Seroquel 100 mg 3 times a day, Paxil 20 mg a day, Ativan 0.5 mg IV q.4 hours. p.r.n. anxiety and agitation. A 20 minutes of cognitive behavioral therapy to help him identify his automatic negative thinking and convert those negative thoughts to more positive thoughts to reduce depression, anxiety, and help him have more adaptive behavioral pattern. Chart reviewed. Discussed with staff. The patient is seen and assessed in his room. Catherine Plummer M.D. DR: ALEXA JOB#: [id number] CC:
--- NOTE | 2019-03-12 13:31 | NUR ---
DISCHARGE PLANNING PATIENT HAS BEEN CLEARED BY CONSULTANTS FOR DISCHARGE FAXED CLINICALS TO [facility] T: [phone] F:[phone] AWAIT BED ASSIGNMENT AND DISCHARGE ORDER
--- NOTE | 2019-03-12 13:57 | Pulmonology Progress Note ---
Assessment/Plan Problems: (1) COPD with acute exacerbation (2) End stage COPD (3) Emphysema of lung (4) Atrial fibrillation (5) Diabetes mellitus (6) GERD (gastroesophageal reflux disease) (7) Bipolar 1 disorder Assessment/Plan change respiratory treatment to Xopenex titrate fio2 to sat of 92% antitussives keep steroids the same dose increases wbc most likely secondary to steroids cardiology note appreciated. sliding scale diabetic diet Subjective ROS Limited/Unobtainable: No Constitutional: Reports: no symptoms HEENT: Repors: no symptoms Respiratory: Reports: no symptoms Allergies: Coded Allergies: BUPROPION (Verified Allergy, Unknown, 03/08/19) ETHAMBUTOL (Verified Allergy, Unknown, 03/08/19) GABAPENTIN (Verified Allergy, Unknown, 03/08/19) ISONIAZID (Verified Allergy, Unknown, 03/08/19) METHYLPREDNISOLONE (Verified Allergy, Unknown, 03/08/19) PHENYTOIN (Verified Allergy, Unknown, 03/08/19) PYRAZINAMIDE (Verified Allergy, Unknown, 03/08/19) RIFAMPIN (Verified Allergy, Unknown, 03/08/19) SULFA (SULFONAMIDE ANTIBIOTICS) (Verified Allergy, Unknown, 03/08/19) Objective Last 24 Hour Vital Signs Date Time Temp Pulse Resp B/P (MAP) Pulse Ox O2 Delivery O2 Flow Rate FiO2 03/12/19 12:21 106 20 98 Nasal Cannula 4.0 36 110 22 98 03/12/19 12:00 98.1 113 20 142/94 (110) 98 03/12/19 10:27 115 143/65 (91) 03/12/19 09:25 113 03/12/19 09:23 84 163/78 03/12/19 09:00 Nasal Cannula 2.0 03/12/19 08:00 98.2 84 21 163/78 (106) 99 03/12/19 07:21 76 18 95 Nasal Cannula 4.0 36 03/12/19 07:20 95 Nasal Cannula 4.0 36 03/12/19 07:17 75 18 98 Nasal Cannula 4.0 36 77 18 95 03/12/19 04:00 98.6 62 18 148/66 (93) 96 03/12/19 04:00 86 03/12/19 03:02 66 18 96 Nasal Cannula 2.0 28 65 18 91 03/12/19 00:00 98.5 85 18 150/90 (110) 95 03/12/19 00:00 86 03/11/19 21:00 Nasal Cannula 2.0 03/11/19 20:00 98.6 56 20 141/80 (100) 96 03/11/19 20:00 97 03/11/19 19:08 96 Nasal Cannula 2.0 28 03/11/19 19:07 66 18 99 Nasal Cannula 2.0 28 64 18 96 03/11/19 19:04 64 18 96 Nasal Cannula 2.0 28 03/11/19 16:00 97.5 58 25 152/74 (100) 95 03/11/19 16:00 96 Intake and Output 03/11/19 03/12/19 19:00 07:00 Intake Total 1320 ml Output Total 800 ml Balance 1320 ml -800 ml Intake Oral 1320 ml Output Urine Total 800 ml # Voids 5 # Bowel Movements 1 1 General Appearance: cachetic HEENT: normocephalic, atraumatic Respiratory/Chest: chest wall non-tender, lungs clear Cardiovascular: normal peripheral pulses, normal rate Abdomen: normal bowel sounds Genitourinary: normal external genitalia Skin: no ulcers Neurologic/Psychiatric: no motor/sensory deficits Laboratory Tests 03/12/19 05:50: White Blood Count 13.2H, Red Blood Count 4.17L, Hemoglobin 11.8L, Hematocrit 37.1L, Mean Corpuscular Volume 89, Mean Corpuscular Hemoglobin 28.3, Mean Corpuscular Hemoglobin Concent 31.9L, Red Cell Distribution Width 13.1, Platelet Count 230, Mean Platelet Volume 5.8L, Neutrophils (%) (Auto) , Lymphocytes (%) (Auto) , Monocytes (%) (Auto) , Eosinophils (%) (Auto) , Basophils (%) (Auto) , Differential Total Cells Counted 100, Neutrophils % ( Manual) 93H, Lymphocytes % (Manual) 6L, Monocytes % (Manual) 1, Eosinophils % ( Manual) 0, Basophils % (Manual) 0, Band Neutrophils 0, Platelet Estimate Adequate, Platelet Morphology Normal, Red Blood Cell Morphology Normal, Sodium Level 142, Potassium Level 3.8, Chloride Level 100, Carbon Dioxide Level 39H, Anion Gap 3L, Blood Urea Nitrogen 17, Creatinine 0.8, Estimat Glomerular Filtration Rate > 60, Glucose Level 186H, Calcium Level 9.0 Current Medications Medications (Trade) Dose Ordered Sig/Kelton Route PRN Reason Start Time Stop Time Status Last Admin Dose Admin Atovaquone (Mepron Susp) 1,500 mg DAILY ORAL 03/10/19 09:00 04/09/19 08:59 03/12/19 09:22 Dextrose (Dextrose 50%) 25 ml Q30M PRN IV Hypoglycemia 03/08/19 21:00 04/07/19 20:59 Dextrose (Dextrose 50%) 50 ml Q30M PRN IV Hypoglycemia 03/08/19 21:00 04/07/19 20:59 Digoxin (Lanoxin) 0.125 mg DAILY ORAL 03/12/19 09:00 04/11/19 08:59 03/12/19 09:25 Diltiazem HCl (Cardizem CD) 240 mg DAILY ORAL 03/12/19 09:00 04/11/19 08:59 03/12/19 09:23 Diltiazem HCl (Cardizem) 10 mg Q1H PRN IVP HR >110 03/09/19 07:29 04/08/19 07:28 03/09/19 11:46 Docusate Sodium (Colace) 100 mg THREE TIMES A DAY ORAL 03/09/19 13:00 04/08/19 12:59 03/12/19 12:33 Finasteride (Proscar) 5 mg QHS ORAL 03/08/19 21:00 04/07/19 20:59 03/11/19 21:41 Heparin Sodium (Porcine) (Heparin 5000 units/ml) 5,000 units EVERY 12 HOURS SUBQ 03/08/19 21:00 04/07/19 20:59 03/12/19 09:26 Lactulose (Cephulac) 30 gm TIDPRN PRN ORAL Constipation 03/11/19 11:00 04/10/19 10:59 Levalbuterol HCl (Xopenex) 1.25 mg TIDPRN PRN HHN Shortness of Breath 03/12/19 12:15 03/17/19 12:14 03/12/19 12:20 Lorazepam (Ativan 2mg/ml 1ml) 0.5 mg Q4H PRN IV For Anxiety 03/08/19 21:00 03/15/19 20:59 03/11/19 15:36 Mineral Oil (Fleet's Mineral Oil Enema) 133 ml EVERY OTHER DAY PRN RECTAL Constipation 03/11/19 11:00 04/10/19 08:59 Montelukast Sodium (Singulair) 10 mg DAILY ORAL 03/09/19 09:00 04/08/19 08:59 03/12/19 09:23 Morphine Sulfate (Morphine Sulfate) 2 mg Q4H PRN IVP Severe Pain (Pain Scale 7-10) 03/08/19 21:00 03/15/19 20:59 03/12/19 13:08 Nitroglycerin (Ntg) 0.4 mg Q5MIN X 3 DOSES PRN SL Prn Chest Pain 03/08/19 21:00 04/07/19 20:59 Ondansetron HCl (Zofran) 4 mg Q6H PRN IVP Nausea & Vomiting 03/08/19 21:00 04/07/19 20:59 03/09/19 05:38 Paroxetine HCl (Paxil) 20 mg DAILY ORAL 03/09/19 10:47 04/08/19 10:46 03/12/19 09:22 Piperacillin Sod/ Tazobactam Sod 3.375 gm/Sodium Chloride 110 ml @ 27.5 mls/hr EVERY 8 HOURS IVPB 03/08/19 22:00 03/13/19 21:59 03/12/19 05:34 Prednisone (predniSONE) 30 mg Q12HR ORAL 03/11/19 21:00 04/10/19 20:59 03/12/19 09:23 Promethazine HCl/ Codeine (Phenergan with Codeine) 5 ml Q6H PRN ORAL cough 03/08/19 21:00 04/07/19 20:59 Quetiapine Fumarate (SEROquel) 100 mg TID ORAL 03/09/19 18:00 04/08/19 17:59 03/12/19 12:33 Temazepam (Restoril) 15 mg HSPRN PRN ORAL Insomnia 03/08/19 21:00 03/15/19 20:59 03/11/19 23:06 Theophylline (Yobany-Dur) 100 mg EVERY 12 HOURS ORAL 03/08/19 21:00 04/07/19 20:59 03/12/19 09:23 Chante Treviño MD Mar 12, 2019 13:57
--- NOTE | 2019-03-12 15:06 | General Progress Note ---
Assessment/Plan Problem List: (1) Emphysema of lung ICD Codes: J43.9 - Emphysema, unspecified SNOMED: 47312913 (2) COPD exacerbation ICD Codes: J44.1 - Chronic obstructive pulmonary disease with (acute) exacerbation SNOMED: 407682151 (3) Bipolar 1 disorder ICD Codes: F31.9 - Bipolar disorder, unspecified SNOMED: 565964075 (4) Generalized anxiety disorder ICD Codes: F41.1 - Generalized anxiety disorder SNOMED: 32086210 (5) GERD (gastroesophageal reflux disease) ICD Codes: K21.9 - Gastro-esophageal reflux disease without esophagitis SNOMED: 485229301 (6) Diabetes mellitus ICD Codes: E11.9 - Type 2 diabetes mellitus without complications SNOMED: 46121235 Status: stable, progressing Assessment/Plan: o2 pulm tx pt diet cbc bmp am dc if clear Subjective Constitutional: Reports: weakness Allergies: Coded Allergies: BUPROPION (Verified Allergy, Unknown, 03/08/19) ETHAMBUTOL (Verified Allergy, Unknown, 03/08/19) GABAPENTIN (Verified Allergy, Unknown, 03/08/19) ISONIAZID (Verified Allergy, Unknown, 03/08/19) METHYLPREDNISOLONE (Verified Allergy, Unknown, 03/08/19) PHENYTOIN (Verified Allergy, Unknown, 03/08/19) PYRAZINAMIDE (Verified Allergy, Unknown, 03/08/19) RIFAMPIN (Verified Allergy, Unknown, 03/08/19) SULFA (SULFONAMIDE ANTIBIOTICS) (Verified Allergy, Unknown, 03/08/19) All Systems: reviewed and negative except above Subjective o2nc sleepy Objective Last 24 Hour Vital Signs Date Time Temp Pulse Resp B/P (MAP) Pulse Ox O2 Delivery O2 Flow Rate FiO2 03/12/19 12:21 106 20 98 Nasal Cannula 4.0 36 110 22 98 03/12/19 12:00 98.1 113 20 142/94 (110) 98 03/12/19 10:27 115 143/65 (91) 03/12/19 09:25 113 03/12/19 09:23 84 163/78 03/12/19 09:00 Nasal Cannula 2.0 03/12/19 08:00 98.2 84 21 163/78 (106) 99 03/12/19 07:21 76 18 95 Nasal Cannula 4.0 36 03/12/19 07:20 95 Nasal Cannula 4.0 36 03/12/19 07:17 75 18 98 Nasal Cannula 4.0 36 77 18 95 03/12/19 04:00 98.6 62 18 148/66 (93) 96 03/12/19 04:00 86 03/12/19 03:02 66 18 96 Nasal Cannula 2.0 28 65 18 91 03/12/19 00:00 98.5 85 18 150/90 (110) 95 03/12/19 00:00 86 03/11/19 21:00 Nasal Cannula 2.0 03/11/19 20:00 98.6 56 20 141/80 (100) 96 03/11/19 20:00 97 03/11/19 19:08 96 Nasal Cannula 2.0 28 03/11/19 19:07 66 18 99 Nasal Cannula 2.0 28 64 18 96 03/11/19 19:04 64 18 96 Nasal Cannula 2.0 28 03/11/19 16:00 97.5 58 25 152/74 (100) 95 03/11/19 16:00 96 Intake and Output 03/11/19 03/12/19 19:00 07:00 Intake Total 1320 ml Output Total 800 ml Balance 1320 ml -800 ml Intake Oral 1320 ml Output Urine Total 800 ml # Voids 5 # Bowel Movements 1 1 Laboratory Tests 03/12/19 05:50: White Blood Count 13.2H, Red Blood Count 4.17L, Hemoglobin 11.8L, Hematocrit 37.1L, Mean Corpuscular Volume 89, Mean Corpuscular Hemoglobin 28.3, Mean Corpuscular Hemoglobin Concent 31.9L, Red Cell Distribution Width 13.1, Platelet Count 230, Mean Platelet Volume 5.8L, Neutrophils (%) (Auto) , Lymphocytes (%) (Auto) , Monocytes (%) (Auto) , Eosinophils (%) (Auto) , Basophils (%) (Auto) , Differential Total Cells Counted 100, Neutrophils % ( Manual) 93H, Lymphocytes % (Manual) 6L, Monocytes % (Manual) 1, Eosinophils % ( Manual) 0, Basophils % (Manual) 0, Band Neutrophils 0, Platelet Estimate Adequate, Platelet Morphology Normal, Red Blood Cell Morphology Normal, Sodium Level 142, Potassium Level 3.8, Chloride Level 100, Carbon Dioxide Level 39H, Anion Gap 3L, Blood Urea Nitrogen 17, Creatinine 0.8, Estimat Glomerular Filtration Rate > 60, Glucose Level 186H, Calcium Level 9.0 Height (Feet): 5 Height (Inches): 3.00 Weight (Pounds): 131 General Appearance: lethargic EENT: normal ENT inspection Neck: normal alignment Cardiovascular: normal peripheral pulses, normal rate, regular rhythm Respiratory/Chest: chest wall non-tender, lungs clear, normal breath sounds Abdomen: normal bowel sounds, non tender, soft Extremities: normal inspection Edema: no edema noted Arm (L), no edema noted Arm (R), no edema noted Leg (L), no edema noted Leg (R), no edema noted Pedal (L), no edema noted Pedal (R), no edema noted Generalized Neurologic: motor weakness Skin: normal pigmentation, warm/dry Danish Ospina DO Mar 12, 2019 15:06
--- NOTE | 2019-03-12 15:17 | NUR ---
DISCHARGE PLANNED PATIENT WILL RETURN TO [id number] T: [phone] FOR NURSE TO NURSE REPORT [facility] HAS BEEN ARRANGED FOR 1730 REGULATORY LEADER
--- NOTE | 2019-03-12 16:32 | NUR ---
NURSE NOTES: Called and left message with Dr. Treviño's office voicemail regarding patient Zosyn antibiotics. Awaiting call back.
--- NOTE | 2019-03-12 16:55 | NUR ---
NURSE NOTES:WOUND CARE NOTES:Pt presented on admission with non-blanchable erythema with shearing R and L clefts of buttocks. Pt denied tenderness when affected areas palpated . Both heels are firm and blanchable. No other skin concerns noted. Pt informed of skin breakdown and was educated on wound prevention. Encouraged to frequently turn and on off-lifting buttocks when repositioning to prevent friction on skin. Tx.Plan: Apply Moisture Barrier Paste to buttocks. Cover with Optifoam drsg. Change every 3 days and prn. Off-load heels with pillow. Assist as needed with repositioning at least every 2hours or as tolerated.
--- NOTE | 2019-03-12 17:01 | NUR ---
NURSE NOTES: Called Dr. 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 Orders entered, noted, and carried out.
--- NOTE | 2019-03-12 17:09 | Cardiology Progress Note ---
Assessment/Plan Assessment/Plan 1. Paroxysmal atrial fibrillation, continue digoxin and diltiazem, not a suitable candidate for anticoagulation therapy in view of increased risk of bleeding as he continues to pull out the peripheral lines. 2. Severe chronic hypercarbic hypoxemic respiratory failure. 3. Chronic obstructive pulmonary disease. Subjective Subjective Sinus rhythm art a rate of 87. Objective Last 24 Hour Vital Signs Date Time Temp Pulse Resp B/P (MAP) Pulse Ox O2 Delivery O2 Flow Rate FiO2 03/12/19 16:00 97.0 87 20 139/87 (104) 97 03/12/19 16:00 91 03/12/19 12:21 106 20 98 Nasal Cannula 4.0 36 110 22 98 03/12/19 12:00 98.1 113 20 142/94 (110) 98 03/12/19 12:00 120 03/12/19 10:27 115 143/65 (91) 03/12/19 09:25 113 03/12/19 09:23 84 163/78 03/12/19 09:00 Nasal Cannula 2.0 03/12/19 08:00 89 03/12/19 08:00 98.2 84 21 163/78 (106) 99 03/12/19 07:21 76 18 95 Nasal Cannula 4.0 36 03/12/19 07:20 95 Nasal Cannula 4.0 36 03/12/19 07:17 75 18 98 Nasal Cannula 4.0 36 77 18 95 03/12/19 04:00 98.6 62 18 148/66 (93) 96 03/12/19 04:00 86 03/12/19 03:02 66 18 96 Nasal Cannula 2.0 28 65 18 91 03/12/19 00:00 98.5 85 18 150/90 (110) 95 03/12/19 00:00 86 03/11/19 21:00 Nasal Cannula 2.0 03/11/19 20:00 98.6 56 20 141/80 (100) 96 03/11/19 20:00 97 03/11/19 19:08 96 Nasal Cannula 2.0 28 03/11/19 19:07 66 18 99 Nasal Cannula 2.0 28 64 18 96 03/11/19 19:04 64 18 96 Nasal Cannula 2.0 28 Intake and Output 03/11/19 03/12/19 19:00 07:00 Intake Total 1320 ml Output Total 800 ml Balance 1320 ml -800 ml Intake Oral 1320 ml Output Urine Total 800 ml # Voids 5 # Bowel Movements 1 1 Laboratory Tests Test 03/12/19 05:50 White Blood Count 13.2 K/UL (4.8-10.8) H Red Blood Count 4.17 M/UL (4.70-6.10) L Hemoglobin 11.8 G/DL (14.2-18.0) L Hematocrit 37.1 % (42.0-52.0) L Mean Corpuscular Volume 89 FL (80-99) Mean Corpuscular Hemoglobin 28.3 PG (27.0-31.0) Mean Corpuscular Hemoglobin Concent 31.9 G/DL (32.0-36.0) L Red Cell Distribution Width 13.1 % (11.6-14.8) Platelet Count 230 K/UL (150-450) Mean Platelet Volume 5.8 FL (6.5-10.1) L Neutrophils (%) (Auto) % (45.0-75.0) Lymphocytes (%) (Auto) % (20.0-45.0) Monocytes (%) (Auto) % (1.0-10.0) Eosinophils (%) (Auto) % (0.0-3.0) Basophils (%) (Auto) % (0.0-2.0) Differential Total Cells Counted 100 Neutrophils % (Manual) 93 % (45-75) H Lymphocytes % (Manual) 6 % (20-45) L Monocytes % (Manual) 1 % (1-10) Eosinophils % (Manual) 0 % (0-3) Basophils % (Manual) 0 % (0-2) Band Neutrophils 0 % (0-8) Platelet Estimate Adequate Platelet Morphology Normal Red Blood Cell Morphology Normal Sodium Level 142 MMOL/L (136-145) Potassium Level 3.8 MMOL/L (3.5-5.1) Chloride Level 100 MMOL/L (98-107) Carbon Dioxide Level 39 MMOL/L (21-32) H Anion Gap 3 mmol/L (5-15) L Blood Urea Nitrogen 17 mg/dL (7-18) Creatinine 0.8 MG/DL (0.55-1.30) Estimat Glomerular Filtration Rate > 60 mL/min (>60) Glucose Level 186 MG/DL (74-106) H Calcium Level 9.0 MG/DL (8.5-10.1) Objective HEENT: Atraumatic and normocephalic. Anicteric. Pupils are equal, round, and reactive to light and accommodation. Extraocular muscles intact. NECK: JVP less than 5 cm. No carotid bruit. CVS: Distant S1 and S2. I do not appreciate murmurs, gallops, or rubs. LUNGS: Diminished breath sounds all lungs. ABDOMEN: Soft, nontender, nondistended. No hepatosplenomegaly. Positive bowel sounds. EXTREMITIES: No evidence of edema, clubbing, or cyanosis. Lars De Anda MD Mar 12, 2019 17:09
--- NOTE | 2019-03-12 18:00 | NUR ---
NURSE NOTES: spoke with instrumentation and control technician pt is having problems breathing. they are changing shift and will be here as soon as possible / Eula.
--- NOTE | 2019-03-12 18:45 | NUR ---
NURSE NOTES: pt were taken from bilateral heels and sacral area. Unable to load pictures error message appears on both computers while trying to download pictures.
--- NOTE | 2019-03-12 19:24 | NUR ---
HAND-OFF: Report given to Radha/RN.
--- NOTE | 2019-03-12 20:20 | NUR ---
NURSE NOTES: [facility] picked up pt to be brought to [facility]. Pt in stable condition. Pt discharged.
--- NOTE | 2019-03-14 05:45 | Progress Note ---
DATE: 03/12/2019 PSYCHOTHERAPY CONSULTATION PROGRESS NOTE TREATING ATTENDING PHYSICIAN: Danish Ospina D.O. SUBJECTIVE: The patient is a 63-year-old male patient. This patient has been diagnosed with schizoaffective disorder, bipolar type. The patient is anxious and restless. He has been needy, attention seeking, hyperverbal, and forgetful. The patient has poor attention and concentration. Poor insight, judgment, and impulse control. The patient has been irritable and agitated with nursing staff. He is alert and oriented to person and place. His mood is anxious. Affect is congruent. Thought process, disoriented. Thought content is negative . Poor attention and concentration. Poor insight, judgment, and impulse control. I provided the patient with, 1. Reality orientation with focus on improving cognitive function of the patient, who is confused and disorganized. Oriented to person, place, time, and situation. 2. Provided the patient with supportive psychotherapy, which provides the patient with the need to . We discussed relaxation exercises, breathing exercises thought process for this patient. He is very negative and catastrophic and that is why redirecting his negative and catastrophic thoughts and feelings positive for this patient as well. Plan is to maintain medication compliance with use of positive coping skills to stabilize him behaviors psychotherapy for this patient 20 minutes. This clinician has reviewed the patient's chart. Discussed the treatment with treatment team. Dianna Aguilar PsyD. DR: FANG JOB#: [id number] CC:
--- NOTE | 2019-03-14 10:28 | Discharge Summary ---
Discharge Summary Discharge Summary _ DATE OF ADMISSION: 03/08/2019 DATE OF DISCHARGE: 03/12/2019 DISCHARGED BY: Dr. Danish Ospina CONSULTANTS: Dr. Lars Aguilar PsyD BRIEF HOSPITAL COURSE: Patient is a 63-year-old male, from [facility], presented to the hospital due to altered mental status. He has history of COPD, steroid- dependent. He reported increased difficulty with respirations. He was noted to have increased confusion. Apparently he had been off his oxygen, he was normally oxygen dependent. He reported increased general pain. Upon evaluation at the ED, vital signs were stable. He was tachycardic at the rate of 130. He was saturating 98% on 5 L nasal cannula. Blood work showed WBC elevated to 14.9. Hemoglobin 12.7, hematocrit 39. Carbon dioxide level 40. Anion gap 2. Troponin negative. proBNP 404. ABG showed pH 7.4, pCO2 72, P O2 106, HCO3 44, O2 saturation 98%, base excess 16. Urinalysis was negative, except for leukocyte esterase +1. Chest x-ray did not show any infiltrates. He was given breathing treatment and steroids. He was admitted for COPD exacerbation and respiratory acidosis. He was admitted to telemetry. Deputy Sheriff Lieutenant was consulted. He was continued on respiratory treatment, titrate FiO2 to saturation of 92%. He was given chest physiotherapy. He was started on prednisone 60 mg twice daily as he was allergic to Solu-Medrol. He was noted to have decreased responsiveness. ABG showed 7.4, PCO2 70, PaO2 101, HCO3 44, O2 saturation 97, base excess of 16. He was placed on BiPAP. Mentation improved, however patient was agitated and was screaming to have the mask taken off. He was placed on restraints. Patient was stating he would rather than have the mask on. Patient wanted to be DNR/DNI. Restraints were taken off. He was taken off BiPAP. Senior Software Engineer was consulted. Patient has paroxysmal atrial fibrillation and had been in and out of atrial fibrillation with rapid ventricular response. He was given Cardizem push. He was placed on 0.25 mg p.o. digoxin daily, diltiazem 180 mg. He also received 5 mg of IV metoprolol. Patient was not a candidate for anticoagulation therapy. Patient is DNR/DNI, and was attempting several times to pull out IV access. Psychiatric evaluation was done. Patient was confused, screaming, agitated and irritable. Patient was verbally abusive and was making nonsensical statements. Patient had poor insight into his psychiatric illness and his medical illness. He was diagnosed with paranoid schizophrenia with acute exacerbation. He was given Seroquel 100 mg 3 times daily. He was eventually given Paxil and Ativan. He complained of abdominal pain. Abdominal ultrasound did not show any acute findings. Suspect nonobstructive stones in the right kidney. Steroids were tapered. He had an increase in WBC, most likely due to steroid use. Digoxin was increased to 125 mcg daily, diltiazem to 240 mg daily. He eventually converted to sinus rhythm. He was saturating well on nasal cannula. He was eventually discharged back to custodial. FINAL DIAGNOSES: Acute metabolic encephalopathy Paroxysmal atrial fibrillation, with RVR, resolved Severe chronic hypercarbic hypoxemic respiratory failure, required BiPAP support Acute COPD exacerbation Bipolar 1 disorder Generalized anxiety disorder GERD Diabetes mellitus Lung emphysema Paranoid schizophrenia with acute exacerbation DISPOSITION: DC to SNF. I have been assigned to complete a discharge summary on this account, I was not involved with the patient's management.--ABENA Goodwin Jacqueline Robles NP Mar 14, 2019 10:28
--- NOTE | 2019-03-16 07:59 | CDS Physician Query ---
Clarification is required for compliance, coding accuracy, and to reflect severity of illness for this patient Dear Chante Pulliam MD Date: 03/16/2019 CDS: Jacob Fung Pt has: Urinary tract infection, Respiratory acidosis, Altered mental status Labs: WBC: 14,9 Vitals: HR:98/min; RR: 36/min Tx: IV PIPERACILLIN/TAZOBACTAM According to the clinical indications above, please indicate below the condition PHYSICIAN RESPONSE: X Sepsis SIRS SIRS with organ dysfunction Septic Shock Not applicable Other: Present on Admission: X Yes No Clinically Undetermined Physician signature Date Please also document in your Progress Notes and/or Discharge Summary and indicate if the condition was present on admission. MTDD
== END 2019-03-12 20:10 | DRG 871 ==
LOC: EDBD 17:48 → EMR 19:35 → 2E 19:50 → EDBEDREQ 20:30 → 2E 03-09 10:28
DX: A41.9 Sepsis, unspecified organism (principal); G93.41 Metabolic encephalopathy; J44.1 Chronic obstructive pulmonary disease with (acute) exacerbation; N39.0 Urinary tract infection, site not specified; E87.2 Acidosis; E46 Unspecified protein-calorie malnutrition; F20.0 Paranoid schizophrenia; J96.12 Chronic respiratory failure with hypercapnia; J96.11 Chronic respiratory failure with hypoxia; Z88.6 Allergy status to analgesic agent; Z88.2 Allergy status to sulfonamides; Z88.8 Allergy status to other drugs, medicaments and biological substances; F31.9 Bipolar disorder, unspecified; K21.9 Gastro-esophageal reflux disease without esophagitis; E11.9 Type 2 diabetes mellitus without complications; I10 Essential (primary) hypertension; I48.0 Paroxysmal atrial fibrillation; F41.1 Generalized anxiety disorder; R45.1 Restlessness and agitation; Z91.19 Patient's noncompliance with other medical treatment and regimen
CPT/HCPCS: 36415; 36600; 71045; 76700; 80048; 80053; 81003; 82550; 82553; 82803; 82962; 83605; 83735; 83880; 84100; 84484; 85007; 85025; 85610; 85730; 87040; 87081; 93005; 94640; 94660; 94664; 96361; 96374; 99285; J2405; J7620